=== PATIENT | male | born 1955 | race Caucasian/White ===

== ENCOUNTER 2020-07-08 05:11 | Day surgery (SDC) | payer BC ==
[2020-07-04 09:36] VITALS: BMI 34.2
--- OUTSIDE RECORDS SUMMARY | 2020-07-08 05:18 | XMS ---
:1955 Author Organization [facility] Care Team Providers Name Role Phone Rod GOLDSMITH Unavailable Unavailable Rod GOLDSMITH Unavailable Unavailable Rod GOLDSMITH Unavailable Unavailable Rod GOLDSMITH Unavailable Unavailable Rod GOLDSMITH Unavailable Unavailable Rod GOLDSMITH Unavailable Unavailable Neena GOLDSMITH Unavailable Unavailable Neena GOLDSMITH Unavailable Unavailable Neena GOLDSMITH Unavailable Unavailable Neena GOLDSMITH Unavailable Unavailable Neena GOLDSMITH Unavailable Unavailable KRAUSHAAR Unavailable Unavailable Loren DO Unavailable Unavailable Loren DO Unavailable Unavailable Loren DO Unavailable Unavailable Loren DO Unavailable Unavailable Loren DO Unavailable Unavailable Loren DO Unavailable Unavailable Loren DO Unavailable Unavailable Loren DO Unavailable Unavailable Loren DO Unavailable Unavailable Loren DO Unavailable Unavailable Loren DO Unavailable Unavailable Loren DO Unavailable Unavailable Loren DO Unavailable Unavailable Colin GOLDSMITH Unavailable Unavailable Colin GOLDSMITH Unavailable Unavailable Colin GOLDSMITH Unavailable Unavailable Colin GOLDSMITH Unavailable Unavailable Colin GOLDSMITH Unavailable Unavailable Colin GOLDSMITH Unavailable Unavailable Colin GOLDSMITH Unavailable Unavailable Colin GOLDSMITH Unavailable Unavailable Colin GOLDSMITH Unavailable Unavailable Colin GOLDSMITH Unavailable Unavailable Colin GOLDSMITH Unavailable Unavailable Colin GOLDSMITH Unavailable Unavailable Felipe GOLDSMITH Unavailable Unavailable Felipe GOLDSMITH Unavailable Unavailable Felipe GOLDSMITH Unavailable Unavailable Felipe GOLDSMITH Unavailable Unavailable Felipe GOLDSMITH Unavailable Unavailable Felipe GOLDSMITH Unavailable Unavailable Felipe GOLDSMITH Unavailable Unavailable Felipe GOLDSMITH Unavailable Unavailable Felipe GOLDSMITH Unavailable Unavailable Felipe GOLDSMITH Unavailable Unavailable Re-disclosure Warning The records that you are about to access may contain information from federally- assisted alcohol or drug abuse programs. If such information is present, then the following federally mandated warning applies: This information has been disclosed to you from records protected by federal confidentiality rules (42 CFR part 2). The federal rules prohibit you from making any further disclosure of this information unless further disclosure is expressly permitted by the written consent of the person to whom it pertains or as otherwise permitted by 42 CFR part 2. A general authorization for the release of medical or other information is NOT sufficient for this purpose. The Federal rules restrict any use of the information to criminally investigate or prosecute any alcohol or drug abuse patient.The records that you are about to access may contain highly sensitive health information, the redisclosure of which is protected by Article 27-F of the [facility] Public Health law. If you continue you may haveaccess to information: Regarding HIV / AIDS; Provided by facilities licensed or operated by the [facility] Office of Mental Health; or Provided by the [facility] Office for People With Developmental Disabilities. If such information is present, then the following [facility] mandated warning applies: This information has been disclosed to you from confidential records which are protected by state law. State law prohibits you from making any further disclosure of this information without the specific written consent of the person to whom it pertains, or as otherwise permitted by law. Any unauthorized further disclosure in violation of state law may result in a fine or snf sentence or both. A general authorization for the release of medical or other information is NOT sufficient authorization for further disclosure. Family History Family Member Family Member Family Member Date of Description Data Source(s) Name Gender Status Status Unknown Female Diagnosis 05/15/2012 NEXTGEN 12:00:00 AM ([facility]) Unknown Female Diagnosis 05/15/2012 NEXTGEN 12:00:00 AM ([facility]) Unknown Female Diagnosis 05/15/2012 NEXTGEN 12:00:00 AM ([facility]) Encounters Encounter Providers Location Date Indications Data Source(s ) Outpatient 04/10/2021 [facility] 09:00:00 AM [facility] EDT Outpatient Attender: Aly 07/05/2020 NEXTGEN ( [place] Loren DO 12:05:00 PM Medical) EDT Outpatient Attender: Aly 07/01/2020 NEXTGEN ( [place] Loren DO 05:18:00 AM Medical) EDT Outpatient Attender: Aly 06/29/2020 NEXTGEN ( [place] Loren DO 11:44:00 AM Medical) EDT Outpatient Attender: Aly 06/28/2020 NEXTGEN ( [place] Loren DO 07:30:00 AM Medical) EDT Outpatient Attender: Aly 06/10/2020 NEXTGEN ( [place] [facility] DO 08:52:00 AM Medical) EDT Outpatient Attender: Aly 05/21/2020 NEXTGEN ( [place] [facility] DO 12:14:00 PM Medical) EDT Outpatient Attender: Aly 04/30/2020 NEXTGEN ( [place] [facility] DO 07:17:00 AM Medical) EDT Outpatient Attender: Aly 04/16/2020 NEXTGEN ( [place] [facility] DO 12:58:00 PM Medical) EDT Outpatient Attender: Aly 04/11/2020 NEXTGEN ( [place] [facility] DO 11:15:00 AM Medical) EDT Outpatient 04/11/2020 [facility] Outpatient 04/11/2020 [facility] EDT - 04/11/2020 09:21:30 AM EDT Patient discharged. Outpatient Attender: Aly 04/08/2020 NEXTGEN ( [place] [facility] DO 08:16:00 PM EDT Medical) Outpatient Attender: Aly 03/27/2020 NEXTGEN ( [place] [facility] DO 11:20:00 AM EDT Medical) Outpatient Attender: Aly 02/01/2020 NEXTGEN ( [place] Loren DO 01:09:00 PM EDT Medical) Outpatient Attender: Aly 12/07/2019 NEXTGEN ( [place] [facility] DO 08:40:00 AM EDT Medical) Outpatient Attender: Aly 12/05/2019 NEXTGEN ( [place] [facility] DO 12:03:00 PM EDT Medical) Outpatient Attender: Simon 11/15/2019 NEXTGEN ( Marito Velasco MD 01:43:00 PM EST Medical) Outpatient Attender: Aly 11/10/2019 NEXTGEN ( [place] [facility] DO 05:36:00 PM EST Medical) Outpatient Attender: Aly 11/05/2019 NEXTGEN ( [place] [facility] DO 06:37:00 AM EST Medical) Outpatient Attender: Aly 10/19/2019 NEXTGEN ( [place] [facility] DO 10:13:00 PM EST Medical) Outpatient Attender: Aly 10/09/2019 NEXTGEN ( [place] [facility] DO 12:23:00 PM EST Medical) Outpatient Attender: Henri 09/24/2019 [facility] (Marito Wang MD 10:55:00 AM EST Medical) Outpatient Attender: Aly 08/15/2019 [facility] ( [place] [facility] DO 07:00:00 PM EST Medical) Outpatient Attender: Aly 08/13/2019 [facility] ( [place] [facility] DO 06:21:00 PM EST Medical) Outpatient Attender: Aly 07/27/2019 [facility] ( [place] [facility] DO 12:31:00 PM EDT Medical) Outpatient Attender: Sharan 07/27/2019 [facility] ( Marito Chaudhary MD 07:59:00 AM EDT Medical) S 07/24/2019 [facility] - Good 10:50:51 AM EDT [facility] Outpatient Attender: Trevor 07/21/2019 [facility] (Marito Shaw MD 02:30:00 PM EDT Medical) S Admitter: HECTOR 07/21/2019 Complex tear of [facility] - Good [facility] 10:27:09 AM EDT - medial meniscus of [facility] 07/24/2019 right knee, Hospital 02:18:00 PM EDT unspecified w Complex tear of medial meniscus of right knee, unspecified w Patient discharged. Outpatient Attender: Sharan Chaudhary 07/19/2019 02:30:00 PM RADHA ([place] MDReferrer: Sharan [facility] ) Neena GOLDSMITH Outpatient Attender: Aly Pimentel DO 07/18/2019 09:05:00 A M NEXTGEN ([facility]) Outpatient Attender: Aly Pimentel DO 07/17/2019 06:00:00 P M NEXTGEN ([facility]) Outpatient Attender: Aly Pimentel DO 07/12/2019 10:29:00 A M NEXTGEN ([facility]) Outpatient Attender: Aly Pimentel DO 07/10/2019 09:15:00 A M NEXTGEN ([facility]) Outpatient Attender: Aly Pimentel DO 07/08/2019 02:20:00 P M NEXTGEN ([facility]) Outpatient Attender: Simon Velasco 07/06/2019 02:45:00 PM RADHA ([place] MDReferrer: Aly Pimentel [facility] Medical) Outpatient Attender: Simon Velasco MD 06/30/2019 03:46:00 PM NEXTGEN ([facility]) Outpatient Attender: Aly Pimentel DO 06/27/2019 12:57:00 P M NEXTGEN ([facility]) Outpatient Attender: Aly Pimentel DO 06/26/2019 10:34:00 P M NEXTGEN ([facility]) Outpatient Attender: Aly Pimentel DO 06/22/2019 09:00:00 A M NEXTGEN ([facility]) Outpatient Attender: Aly Pimentel DO 06/13/2019 05:36:00 P M NEXTGEN ([facility]) Outpatient Attender: Aly Pimentel DO 06/12/2019 02:25:00 P M NEXTGEN ([facility]) Outpatient Attender: Aly Pimentel DO 06/09/2019 04:42:00 P M NEXTGEN ([facility]) Outpatient Attender: Aly Pimentel DO 06/06/2019 04:55:00 P M NEXTGEN ([facility]) Outpatient Attender: Aly Pimentel DO 06/05/2019 10:15:00 A M NEXTGEN ([facility]) Outpatient Attender: Aly Pimentel DO 05/22/2019 12:54:00 P M NEXTGEN ([facility]) Outpatient Attender: Henri Wang 05/19/2019 07:40:00 AM NEXTGEN ([facility]) Outpatient Attender: Aly Pimentel DO 05/18/2019 04:33:00 P M NEXTGEN ([facility]) Outpatient Attender: Aly Pimentel DO 05/17/2019 04:25:00 P M NEXTGEN ([facility]) Immunizations Vaccine Date Status Description Data Source(s) Influenza, high dose 06/22/2019 completed Flu High-Dose NEXTGE N ([place] seasonal 12:00:00 AM [facility] Medical) Source: New Immunization Record pneumococcal 06/22/2019 12:00:00 completed Pneumo (2 yrs or NEXT GEN ([place] polysaccharide PPV23 AM T older) (PPV23) Medic al) Source: New Immunization Record Medications Medication Brand Start Product Dose Route Administrative Pharmacy [facility] Indications Reaction Description Data Name Date Form Instructions Instructions Source(s) Acetaminoph Percoc 05/21/ TABLET ORAL active aceta minophe NEXTGEN en 325 MG / et 2019 n 325 MG / ([place] Oxycodone mg-325 12:00: oxycodone M edical) Hydrochlori mg 00 AM hydrochlorid de 5 MG tablet EDT e 5 MG Oral Oral Tablet Tablet [Percocet] [Percocet] Percocet 5 mg-325 mg tablet istop [id number] Lisinopril 10 LISINOPRIL 04/30/2020 TABLET ORAL active TAKE 1 NEXTGEN MG Oral Tablet TAB 10MG 12:00:00 AM TABLET DAILY ([place] LISINOPRIL TAB EDT Medic al) 10MG Metoprolol METOPROLOL 04/30/2020 TABLET ORAL active TAKE 1/2 NEXTGEN Tartrate 25 MG TAB TAR 12:00:00 AM TABLET TWICE ([place] Oral Tablet 25MG EDT A DAY Medical ) METOPROLOL TAB TAR 25MG Famotidine 20 famotidine 04/11/2020 TABLET 1 ORAL active take 1 NEXTGEN MG Oral Tablet 20 mg 12:00:00 AM . ta blet by ([place] famotidine 20 tablet EDT [address] e 2 Medical) mg tablet 0 times every { day t a b l e t } Acetaminophen Percocet 5 03/27/2020 TABLET ORAL completed acetaminophe NEXTGEN 325 MG / mg-325 mg 12:00:00 AM n 32 5 MG / ([place] Oxycodone tablet EDT oxycodone Med ical) Hydrochloride hydrochlori d 5 MG Oral e 5 MG Oral Tablet Tablet [Percocet] [Percocet] Percocet 5 mg-325 mg tablet istop [id number] Acetaminophen Percocet 02/01/2020 TABLET ORAL completed Acetaminophen NEXTGEN 325 MG / 5 mg-325 12:00:00 AM 325 M G / ([place] Oxycodone mg tablet EDT Oxycodone Medical) Hydrochloride Hydrochlori de 5 MG Oral 5 MG Oral Tablet Tablet [Percocet] [Percocet] Percocet 5 mg-325 mg tablet istop on file Acetaminophen Percocet 12/07/2019 TABLET ORAL completed Acetaminophen NEXTGEN 325 MG / 5 mg-325 12:00:00 AM 325 M G / ([place] Oxycodone mg tablet EDT Oxycodone Medical) Hydrochloride Hydrochlori de 5 MG Oral 5 MG Oral Tablet Tablet [Percocet] [Percocet] Percocet 5 mg-325 mg tablet istop [id number] Lisinopril 10 LISINOPRIL 11/05/2019 TABLET ORAL completed TAKE 1 NEXTGEN MG Oral Tablet TAB 10MG 12:00:00 AM TABLET DAILY ([place] LISINOPRIL TAB EST Medic al) 10MG Metoprolol METOPROLOL 11/05/2019 TABLET ORAL completed TAKE 1/2 NEXTGEN Tartrate 25 MG TAB TAR 12:00:00 AM TABLET TWICE ([place] Oral Tablet 25MG EST A DAY Medical ) METOPROLOL TAB TAR 25MG Acetaminophen Percocet 5 10/09/2019 TABLET ORAL completed Acetaminophe NEXTGEN 325 MG / mg-325 mg 12:00:00 AM n 32 5 MG / ([place] Oxycodone tablet EST Oxycodone Med ical) Hydrochloride Hydrochlori d 5 MG Oral e 5 MG Oral Tablet Tablet [Percocet] [Percocet] Percocet 5 mg-325 mg tablet istop [id number] Rosuvastatin rosuvastatin 09/24/2019 TABLET ORAL active TAKE 1 NEXTGEN calcium 5 MG 5 mg tablet 12:00:00 AM TABLET DAILY ([place] Oral Tablet EST FOR Medical) rosuvastatin 5 CHOLESTERO L mg tablet Acetaminophen Percocet 5 08/15/2019 TABLET ORAL complete Acetaminophe NEXTGEN 325 MG / mg-325 mg 12:00:00 AM d n 32 5 MG / ([place] Oxycodone tablet EST Oxycodone Med ical) Hydrochloride Hydrochlori d 5 MG Oral e 5 MG Oral Tablet Tablet [Percocet] [Percocet] Percocet 5 mg-325 mg tablet Lisinopril 10 LISINOPRIL 08/13/2019 TABLET ORAL complete TAKE 1 NEXTGEN MG Oral Tablet TAB 10MG 12:00:00 AM d TABLET DAILY ([place] LISINOPRIL TAB EST Medic al) 10MG Acetaminophen Percocet 5 07/27/2019 TABLET ORAL complete Acetaminophe NEXTGEN 325 MG / mg-325 mg 12:00:00 AM d n 32 5 MG / ([place] Oxycodone tablet EDT Oxycodone Med ical) Hydrochloride Hydrochlori d 5 MG Oral e 5 MG Oral Tablet Tablet [Percocet] [Percocet] Percocet 5 mg-325 mg tablet istop [id number] sodium 92083-629-91 07/24/2019 IntraVENous active OR - PACU, [place] chloride 02:00:00 PM 5-40 mL, [facility] (NS) flush EDT IntraVENous, C har[facility] 5-40 mL EVERY 8 Health HOURS, First System dose on [facility] 07/24/19 at 1400, Until Discontinued Medication administered onsite sodium 00116-565-04 07/24/2019 IntraVENous active OR - Postop, [place] chloride 02:00:00 PM 5-40 mL, [facility] (NS) flush EDT IntraVENous, C harity 5-40 mL EVERY 8 Health HOURS, First System dose on [facility] 07/24/19 at 1400, Until Discontinued Medication administered onsite Oxycodone oxyCODONE IR 07/24/2019 5 mg Oral completed 5 mg, [facility] Hydrochloride 5 (ROXICODONE) 01:16:00 PM Oral, [facility] MG Oral Tablet tablet 5 mg EDT ONC E, 1 [place] oxyCODONE IR dose, Mon He alth (ROXICODONE) 07/24/19 Sys tem tablet 5 mg at 1316 Inc Medication administered onsite sodium 21792-139-33 07/24/2019 IntraVENous active OR - Postop, [place] chloride 11:20:12 AM 5-40 mL, [facility] (NS) flush EDT IntraVENous, C harity 5-40 mL NEEDED, Health Starting [facility] 07/24/19 at Inc 1120, Until Discontinued, Line Patency Medication administered onsite Calcium lactated 07/24/2019 50 IntraVENous active OR - PACU, 50 [facility] Chloride Ringers 10:50:00 AM mL/h mL/hr, at 50 [facility] 0.0014 infusion EDT mL/hr, [place] MEQ/ML / IntraVENous, Hea lth Potassium CONTINUOUS, Sys tem Chloride Starting [facility] 0.004 MEQ/ML 07/24/19 at / Sodium 1050, Until Chloride Discontinued 0.103 MEQ/ML / Sodium Lactate 0.028 MEQ/ML Injectable Solution lactated Ringers infusion Medication administered onsite Labetalol labetalol 07/24/2019 10 IntraVENous active OR - PACU, 10 [facility] hydrochloride 5 MG/ML (NORMODYNE;TRANDATE) 10:49:30 AM mg mg, [facility] Injectable Solution injection 10 mg EDT IntraVENous, [place] labetalol NEEDED, 3 Healt h (NORMODYNE;TRANDATE) dose s, Starting System injection 10 mg [facility] 07/24 at Inc 1049, Until 07/24/19 at 2359, Other, Follow BP guidelines in administration instructions Medication administered onsite Albuterol albuterol 07/24/2019 2.5 Inhalation active OR - PACU, 2.5 Bon 0.83 MG/ML (PROVENTIL 10:49:30 AM mg m g, Inhalation, [facility] Inhalant VENTOLIN) EDT NEEDED, 1 [place] Solution nebulizer dose, Start [facility] albuterol solution Mon 9 at System (PROVENTIL 2.5 mg 1049, Until Inc VENTOLIN) Discontinued, nebulizer Wheezing
MOD E solution OF DELIVERY: 2.5 mg Nebulizer Medication administered onsite Naloxone naloxone 07/24/2019 0.2 IntraVENous active OR - PACU, 0.2 [facility] Hydrochloride (NARCAN) 10:49:30 AM mg mg (0.68778 [facility] 0.4 MG/ML injection EDT mg/kg), [facility] Injection 0.2 mg IntraVENous, Health naloxone NEEDED, Syste m (NARCAN) Starting Mon Inc injection 0.2 07/24/19 at mg 1049, Until Discontinued, For respiration less than 10 Medication administered onsite sodium 75203-244-23 07/24/2019 IntraVENous active OR - PACU, [place] chloride 10:49:29 AM 5-40 mL, [facility] (NS) flush EDT IntraVENous, C harity 5-40 mL NEEDED, Health Starting Mon System 07/24/19 at Inc 1049, Until Discontinued, Line Patency Medication administered onsite fentaNYL 5135-9168-03 07/24/2019 25 IntraVENous active OR - PACU, 25 Bon citrate 10:49:29 AM ug mcg, [facility] (PF) EDT IntraVENous, [place] injection NEEDED, 4 He alth 25 mcg doses, System Starting Mon Inc 07/24/19 at 1049, Until 07/24/19 at 2359, Moderate Pain Medication administered onsite ondansetron 39758-634-78 07/24/2019 4 IntraVENous active OR - PACU, 4 Bon (ZOFRAN) 10:49:29 AM mg mg, [facility] injection 4 EDT IntraVENous, [place] mg NEEDED, 2 Health doses, System Starting Mon Inc 07/24/19 at 1049, Until Discontinued, Nausea or Vomiting Medication administered onsite HYDROmorphone 67059-049-08 07/24/2019 1 IntraVENous activ e OR - PACU, 1 Bon (PF) 10:49:29 AM mg mg, [facility] (DILAUDID) EDT IntraVENous, C harity injection 1 mg ONCE PRN, 1 Health dose, System Starting [facility] 07/24/19 at 1049, Until Wed07/25/19 at 1049, Severe Pain Medication administered onsite fentaNYL 4329-7432-95 07/24/2019 50 IntraVENous active OR - PACU, 50 [facility] citrate 10:49:29 AM ug mcg, [facility] (PF) EDT IntraVENous, [place] injection NEEDED, 4 He alth 50 mcg doses, System Starting [facility] 07/24/19 at 1049, Until Wed07/24/19 at 2359, Severe Pain Medication administered onsite HYDROmorphone 18170-785-48 07/24/2019 0.5 IntraVENous activ e OR - PACU, Bon (PF) 10:49:29 AM mg 0.5 mg, Sec[facility] rs (DILAUDID) EDT IntraVENous, C harity injection 0.5 ONCE PRN, 1 Health mg dose, System Starting [facility] 07/24/19 at 1049, Until Wed07/25/19 at 1049, Moderate Pain Medication administered onsite diphenhydrAMINE 57650-664-94 07/24/2019 25 IntraVENous active OR - PACU, 25 Bon (BENADRYL) 10:49:29 AM mg mg, Se cours injection 25 mg EDT IntraVENo us, [place] NEEDED, Health Starting [facility] 07/24/19 at Inc 1049, Until Discontinued, Itching Medication administered onsite Azithromycin Zithromax 07/21/2019 TABLET 2.00 ORAL completed Azithromycin NEXTGEN 250 MG Oral 250 mg 12:00:00 AM tablet 25 0 MG Oral ([place] Tablet tablet EDT Tablet Medical) [Zithromax] [Zithromax] Zithromax 250 mg tablet Amoxicillin amoxicilli 07/21/2019 aborted TAKE 1 TABLET Bon 875 MG / n-clavulan 12:00:00 AM BY ORAL ROUTE [facility] Clavulanate ate EDT EVERY 12 [place] ity 125 MG Oral (AUGMENTIN HOURS H ealth Tablet ) 875-125 System I nc amoxicillin-c mg per lavulanate tablet (AUGMENTIN) 875-125 mg per tablet Amoxicillin Augmentin 07/21/2019 TABLET 1.00 ORAL completed Amoxicillin NEXTGEN 875 MG / 875 mg-125 12:00:00 AM tablet 8 75 MG / ([place] Clavulanate mg tablet EDT Clavulan ate Medical) 125 MG Oral 125 MG Oral Tablet Tablet [Augmentin] [Augmentin] Augmentin 875 mg-125 mg tablet Famotidine 20 famotidine 07/12/2019 TABLET ORAL active take 1 tablet NEXTGEN MG Oral 20 mg 12:00:00 AM by oral r oute ([place] Tablet tablet EDT 2 times every Me dical) famotidine 20 day --inste ad mg tablet of ranitidine Famotidine 20 famotidine 07/10/2019 TABLET ORAL completed take 1 tablet NEXTGEN MG Oral 20 mg 12:00:00 AM by oral r oute ([place] Tablet tablet EDT 2 times every Me dical) famotidine 20 day --inste ad mg tablet of ranitidine Famotidine 20 famotidine 07/10/2019 TABLET ORAL completed take 1 tablet NEXTGEN MG Oral 20 mg 12:00:00 AM by oral r oute ([place] Tablet tablet EDT 2 times every Me dical) famotidine 20 day --inste ad mg tablet of ranitidine Famotidine Duexis 800 07/06/2019 TABLET 1.00 ORAL active famotidine NEXTGEN 26.6 MG / mg-26.6 mg 12:00:00 AM {tablet 26.6 MG / ([place] Ibuprofen 800 tablet EDT } ibuprofen 800 Medical) MG Oral MG Oral Tablet Tablet [Duexis] [Duexis] Duexis 800 mg-26.6 mg tablet Famotidine 20 famotidine 07/04/2019 20 mg active 20 mg two (2) Bon MG Oral (PEPCID) 12:00:00 AM times a day. [facility] Tablet 20 mg EDT [place] famotidine tablet Health (PEPCID) 20 System I nc mg tablet Famotidine DUEXIS 06/30/2019 aborted Bon 26.6 MG / 800-26.6 12:00:00 AM [facility] Ibuprofen 800 mg tab EDT [facility] it[facility] MG Oral Health Tablet System Inc [Duexis] DUEXIS 800-26.6 mg tab Famotidine 20 famotidine 06/22/2019 TABLET ORAL completed take 1 tablet NEXTGEN MG Oral 20 mg 12:00:00 AM by oral r oute ([place] Tablet tablet EDT 2 times every Me dical) famotidine 20 day --inste ad mg tablet of ranitidine Famotidine 20 famotidine 06/22/2019 TABLET ORAL completed take 1 tablet NEXTGEN MG Oral 20 mg 12:00:00 AM by oral r oute ([place] Tablet tablet EDT 2 times every Me dical) famotidine 20 day --inste ad mg tablet of ranitidine Diazepam 5 MG Valium 5 06/12/2019 TABLET ORAL completed Diazepam 5 MG NEXTGEN Oral Tablet mg tablet 12:00:00 AM O ral Tablet ([place] [Valium] EDT [Valium] Medical ) Valium 5 mg tablet Diazepam 5 MG diazePAM 06/12/2019 active TAKE 1 TO 2 [facility] Oral Tablet (VALIUM) 5 12:00:00 AM TABLETS 30 [facility] diazePAM mg tablet EDT MINUTES ROSELINE OR [place] (VALIUM) 5 mg TO [facility] Acetaminophen Percocet 5 05/22/2019 TABLET ORAL completed Acetaminophen NEXTGEN 325 MG / mg-325 mg 12:00:00 AM 325 MG / ([place] Oxycodone tablet EDT Oxycodone Med ical) Hydrochloride Hydrochlori de 5 MG Oral 5 MG Oral Tablet Tablet [Percocet] [Percocet] Percocet 5 mg-325 mg tablet istop [id number] Rosuvastatin rosuvastatin 05/19/2019 TABLET ORAL completed TAKE 1 NEXTGEN calcium 5 MG 5 mg tablet 12:00:00 AM TABLET DAILY ([place] Oral Tablet EDT FOR Medical) rosuvastatin CHOLESTEROL 5 mg tablet Metoprolol metoprolol 05/17/2019 TABLET ORAL completed TAKE 1/2 NEXTGEN Tartrate 25 tartrate 25 12:00:00 AM TABLET TWICE ([place] MG Oral mg tablet EDT A DAY Medica l) Tablet metoprolol tartrate 25 mg tablet Lisinopril 10 lisinopril 10 05/17/2019 TABLET 1 ORAL completed take 1 NEXTGEN MG Oral mg tablet 12:00:00 AM . table t by ([place] Tablet EDT 0 oral route Medical ) lisinopril 10 0 every day mg tablet t a b l e t Acetaminophen Percocet 5 03/28/2019 TABLET ORAL active Acetaminophe NEXTGEN 325 MG / mg-325 mg 12:00:00 AM n 32 5 MG / ([place] Oxycodone tablet EDT Oxycodone Med ical) Hydrochloride Hydrochlori d 5 MG Oral e 5 MG Oral Tablet Tablet [Percocet] [Percocet] Percocet 5 mg-325 mg tablet istop [id number] Diazepam 5 diazepam 5 10/05/2018 TABLET ORAL completed take 1-2 NEXTGEN MG Oral mg tablet 12:00:00 AM table ts one ([place] Tablet EST hour before Medica l) diazepam 5 procedure mg tablet 60 ACTUAT Advair 06/27/2018 DISC 1.0 RESPIR completed 60 ACTUAT NEXTGEN Fluticasone Diskus 100 12:00:00 AM 0 ATORY Fluticasone ([place] propionate mcg-50 EDT puf (INHAL propionate Medical) 0.1 mcg/dose f ATION) 0.1 MG/ACTUAT / powder for MG/ACTU AT / salmeterol inhalation salmeter ol 0.05 0.05 MG/ACTUAT MG/ACTUAT Dry Powder Dry Powder Inhaler Inhaler [Advair] [Advair] Advair Diskus 100 mcg-50 mcg/dose powder for inhalation 200 ACTUAT ProAir HFA 06/27/2018 AEROSOL RESPIR completed [id number] NEXTGEN Albuterol 90 12:00:00 AM ATORY 200 ACT UAT ([place] 0.09 mcg/actuati EDT (INHAL Albuterol M edical) MG/ACTUAT on aerosol ATION) 0.09 Metered inhaler MG/ACTUAT Dose Metered Inhaler Dose [ProAir] Inhaler ProAir HFA [ProAir] 90 mcg/actuati on aerosol inhaler Shingrix 0.5 ML 06/20/2018 KIT 0.5 INTRAM completed 0 .5 ML NEXTGEN (PF) 50 Varicella 12:00:00 AM magdy hernandez ([place] mcg/0.5 mL zoster EDT lil R zoster Medic al) intramuscul virus ite virus ar glycoprotei r glycoprotei suspension, n E, n E, kit recombinant recombinant 0.1 MG/ML 0.1 MG/ML Injection Injection [Shingrix] Ranitidine ranitidine 06/18/2017 CAPSULE 1 ORAL completed take 1 NEXTGEN 150 MG Oral 150 mg 12:00:00 AM cap caps ule by ([place] Capsule capsule EDT sul oral route Med ical) ranitidine e 2 times 150 mg every day capsule pantoprazol pantoprazol 06/04/2015 TABLET 1.0 ORAL completed take 1 NEXTGEN e 40 mg e 40 MG 12:00:00 AM 0 tablet by ([place] tablet,[place] Delayed EDT {ta oral route Medical) yed release Release ble every day Oral Tablet t} Ranitidine ranitidine 150 Oral aborted Take 150 mg Bon 150 MG Oral (ZANTAC) mg by mouth [facility] Tablet [address] [facility] ranitidine tablet [employer] (ZANTAC) [employer] 150 mg tablet Insurance Providers Payer name Policy type Policy ID Covered Covered green party's Policy P amadeo / Coverage green party ID relationship to Jose Inf ormation type jose BC OUT OF [id number] [place] [id number] FORMERLY [facility] [place] [id number] Bluecross Cross/Blue BlueCard Shield [place] Blue [id number] self [id number] Bluecross Cross/Blue [id number] BlueCard Shield BLUE CROSS [id number] BLUE [place]OSS O [id number] [place] [id number] [address] BCBS [id number] EMPIRE/BLUE PRIORITY [place] [id number] PART A ONLY [place] [id number] [place]UE [place]OSS O [id number] [place] [id number] PART A ONLY Problems, Conditions, and Diagnoses Code Display Name Description Problem Type Effective Data Dates Source(s) Z01.818 Encounter for PreOp Diagnosis 07/06/2019 NEXTGEN other interpretation 12:00:00 AM ([place] preprocedural (observable EDT Medical) examination entity) R00.1 Bradycardia, Bradycardia Diagnosis 07/06/2019 NEXTGEN unspecified interpretation 12:00:00 AM ([facility] d (observable EDT Medical) entity) I71.1 Thoracic aortic Thoracic aortic Diagnosis 07/06/2019 NEXT GEN aneurysm, aneurysm, interpretation 12:00:00 AM ([place] ruptured ruptured (observable EDT Medical) entity) I10 Essential Hypertension Diagnosis 07/06/2019 NEXTGEN (primary) interpretation 12:00:00 AM ([place] hypertension (observable EDT Medical) entity) S83.231A Complex tear of Complex tear of Diagnosis 07/24/2019 [facility] S - Good medial meniscus, medial meniscus, 07:18:00 AM S [facility] current injury, current injury, EDT Hosp ital right knee, right knee, initial encounter initial encounter Surgeries/Procedures Procedure Description Date Indications Data Source(s) OFFICE/OUTPATIENT VISIT, 04/11/2020 NEX TGEN ([place] EST 12:00:00 AM EDT Medical) - 04/11/2020 12:00:00 AM EDT OFFICE/OUTPATIENT VISIT, 08/15/2019 NEX TGEN ([place] EST 12:00:00 AM EST Medical) - 08/15/2019 12:00:00 AM EST OFFICE/OUTPATIENT VISIT, 07/21/2019 NEX TGEN ([place] EST 12:00:00 AM EDT Medical) - 07/21/2019 12:00:00 AM EDT TTE W/DOPPLER COMPLETE 07/19/2019 NEXTG EN ([place] 12:00:00 AM EDT Medical) - 07/19/2019 12:00:00 AM EDT ROUTINE VENIPUNCTURE 07/17/2019 NEXTGEN ([place] 12:00:00 AM EDT Medical) - 07/17/2019 12:00:00 AM EDT OFFICE/OUTPATIENT VISIT, 07/17/2019 NEX TGEN ([place] EST 12:00:00 AM EDT Medical) - 07/17/2019 12:00:00 AM EDT OFFICE CONSULTATION 07/06/2019 NEXTGEN ([place] 12:00:00 AM EDT Medical) - 07/06/2019 12:00:00 AM EDT PNEUMOCOCCAL VACCINE 06/22/2019 NEXTGEN ([place] 12:00:00 AM EDT Medical) - 06/22/2019 12:00:00 AM EDT IMMUNIZATION ADMIN, EACH 06/22/2019 NEX TGEN ([place] ADD 12:00:00 AM EDT Medical) - 06/22/2019 12:00:00 AM EDT FLU VACC PRSV FREE INC 06/22/2019 NEXTG EN ([place] ANTIG 12:00:00 AM EDT Medical) - 06/22/2019 12:00:00 AM EDT IMMUNIZATION ADMIN 06/22/2019 NEXTGEN ( [place] 12:00:00 AM EDT Medical) - 06/22/2019 12:00:00 AM EDT ROUTINE VENIPUNCTURE 06/22/2019 NEXTGEN ([place] 12:00:00 AM EDT Medical) - 06/22/2019 12:00:00 AM EDT PREV VISIT, EST, 65 & 06/22/2019 NEXTGE N ([place] OVER 12:00:00 AM EDT Medical) - 06/22/2019 12:00:00 AM EDT PURE TONE HEARING TEST, 06/22/2019 NEXT GEN ([place] AIR 12:00:00 AM EDT Medical) - 06/22/2019 12:00:00 AM EDT OFFICE/OUTPATIENT VISIT, 06/05/2019 NEX TGEN ([place] EST 12:00:00 AM EDT Medical) - 06/05/2019 12:00:00 AM EDT Results ID Date Data Source [id number] 07/03/2020 05:15:00 PM EDT [facility] Name Value Range Interpretation Description Data Sup porting Code Source(s) Document(s ) SARS [facility] coronavirus 2 RNA This lab was ordered by [facility] and reported by [facility]. ID Date Data Source [id number] 06/30/2020 04:43:00 PM EDT [facility] Received: 06/29/2020 at 09:57:00 QTE : [place], [address]Gucci MD Received: 06/29/2020 at 09:57:00 QTE : [facility] [place], [address]Gucci MD Received: 06/29/2020 at 09:57:00 QTE : [place], [address]Gucci MD Received: 06/29/2020 at 09:57:00 QTE : [place], [address]Gucci MD Received: 06/29/2020 at 09:57:00 QTE : [facility], [address], [place], [address], Gucci Gómez MD Received: 06/29/2020 at 09:57:00 QTE : [facility], [address], [place], [address], Gucci Gómez MD Received: 06/29/2020 at 09:57:00 QTE : [facility], [address], [place], [address], Gucci Gómez MD Received: 06/29/2020 at 09:57:00 QTE : [facility], [address], [place], [address], Gucci Gómez MD Received: 06/29/2020 at 09:57:00 QTE : [facility], [address], [place], [address], Gucci Gómez MD Received: 06/29/2020 at 09:57:00 QTE : [facility], [address], [place], [address], Gucci Gómez MD Received: 06/29/2020 at 09:57:00 QTE : [facility], [address], [place], [address], Gucci Gómez MD Received: 06/29/2020 at 09:57:00 QTE : [facility], [address], [place], [address], Gucci Gómez MD Name Value Range Interpretation Description Data Sup porting Code Source(s) Document(s ) Cholesterol 142 <200 Normal (applies [facility] [Mass/volume] mg/dL to non-numeric Diagnostics in Serum or results) Plasma Cholesterol in 54 mg/dL > OR = Normal (applies [facility] HDL 40 to non-numeric Diagnostics [Mass/volume] results) in Serum or Plasma Triglyceride 45 mg/dL <150 Normal (applies [facility] [Mass/volume] to non-numeric Diagnostics in Serum or results) Plasma Cholesterol in 75 mg/dL Normal (applies [facility] LDL (calc) to non-numeric Diagnostics [Mass/volume] results) in Serum or Plasma by calculation Reference range: <100Desirable range <10 0 mg/dL for primary prevention;<70 mg/dL for patients with CHD or diabetic patientswi th > or = 2 CHD risk factors.LDL-C is now calculated using the BravoVon lation, which is a validated novel method providingbetter accuracy than the Friede neeraj equation in theestimation of LDL-C.Bravo SS et al. EVY. 2013;310(19 ): [phone](http://education.Paymate.com/faq/WCS250) Cholesterol.total/Cholesterol in 2.6 (calc) <5.0 Normal (applies [facility] HDL [Mass Ratio] in Serum or to non-numeric Diagnostics Plasma results) Cholesterol non HDL [Mass/volume] 88 mg/dL <130 Normal (applies [facility] in Serum or Plasma (calc) to non-numeric Diagno stics results) For patients with diabetes plus 1 major ASCVD riskfactor, treating to a non-HDL-C goal of <100 mg/dL(LDL-C of <70 mg/dL) i s considered a therapeuticoption. ID Date Data Source [id number] 06/30/2020 04:43:00 PM EDT [facility] Received: 06/29/2020 at 09:57:00 QTE : [place], [address], Gucci Gómez MD Received: 06/29/2020 at 09:57:00 QTE : [place], [address]Gucci MD Received: 06/29/2020 at 09:57:00 QTE : [place], [address]Gucci MD Received: 06/29/2020 at 09:57:00 QTE : [place], [address]Gucci MD Received: 06/29/2020 at 09:57:00 QTE : [facility], [address], [place], [address], Gucci Gómez MD Received: 06/29/2020 at 09:57:00 QTE : [facility], [address], [place], [address], Gucci Gómez MD Received: 06/29/2020 at 09:57:00 QTE : [facility], [address], [place], [address], Gucci Gómez MD Received: 06/29/2020 at 09:57:00 QTE : [facility], [address], [place], [address], Gucci Gómez MD Received: 06/29/2020 at 09:57:00 QTE : [facility], [address], [place], [address], Gucci Gómez MD Received: 06/29/2020 at 09:57:00 QTE : [facility], [address], [place], [address], Gucci Gómez MD Received: 06/29/2020 at 09:57:00 QTE : [facility], [address], [place], [address], Gucci Gómez MD Received: 06/29/2020 at 09:57:00 QTE : [facility], [address], [place], [address], Gucci Gómez MD Name Value Range Interpretation Description Data Source(s ) Supporting Code Document(s ) Urate 5.4 mg/dL 4.0-8.0 Normal (applies to [facility] [Mass/volu non-numeric Diagnostics me] in results) Serum or Plasma Therapeutic target for gout patients: <6 .0 mg/dL ID Date Data Source [id number] 06/30/2020 04:43:00 PM EDT [facility] Received: 06/29/2020 at 09:57:00 QTE : [facility], [address], [place], [address], Gucci Gómez MD Received: 06/29/2020 at 09:57:00 QTE : [facility], [address], [place], [address], Gucci Gómez MD Received: 06/29/2020 at 09:57:00 QTE : [facility], [address], [place], [address], Gucci Gómez MD Received: 06/29/2020 at 09:57:00 QTE : [facility], [address], [place], [address], Gucci Gómez MD Received: 06/29/2020 at 09:57:00 QTE : [facility], [address], [place], [address], Gucci Gómez MD Received: 06/29/2020 at 09:57:00 QTE : [facility], [address], [place], [address], Gucci Gómez MD Received: 06/29/2020 at 09:57:00 QTE : [facility], [address], [place], [address], Gucci Gómez MD Received: 06/29/2020 at 09:57:00 QTE : [facility], [address], [place], [address], Gcuci Gómez MD Received: 06/29/2020 at 09:57:00 QTE : [facility], [address], [place], [address], Gucci Gómez MD Received: 06/29/2020 at 09:57:00 QTE : [facility], [address], [place], [address], Gucci Gómez MD Received: 06/29/2020 at 09:57:00 QTE : [facility], [address], [place], [address], Gucci Gómez MD Received: 06/29/2020 at 09:57:00 QTE : [facility] [address], [place], [address], Gucci Gómez MD Name Value Range Interpretation Description Data Source(s ) Supporting Code Document(s ) Glucose 121 mg/dL 65-99 Above high normal [facility] [Mass/volum Diagnostics e] in Serum or Plasma Fasting reference intervalFor someone without known diabetes, a glucose valuebetween 100 and 125 mg/dL is consis tent withprediabetes and should be confirmed with afollow-up test. Urea nitrogen 11 mg/dL 7-25 Normal (applies to [facility] D iagnostics [Mass/volume] in Serum non-numeric results) or Plasma Creatinine 0.79 mg/dL 0.70-1.25 Normal (applies to [facility] [Mass/volume] in Serum non-numeric results) or Plasma For patients >49 years of age, the refer ence limitfor Creatinine is approximately 13% higher for peopleidentified as -A merican. Glomerular filtration 93 mL/min/1.73m2 > OR = Normal (applies [facility] rate/1.73 sq 60 to non-numeric Diagnostics M.predicted [Volume results) Rate/Area] in Serum, Plasma or Blood by Creatinine-based formula (MDRD) Glomerular filtration 108 mL/min/1.73m2 > OR = Normal (applies [facility] rate/1.73 sq M 60 to non-numeric Diagnostic s predicted among blacks results) [Volume Rate/Area] in Serum or Plasma by Creatinine-based formula (MDRD) Urea NOT APPLICABLE 6-22 [facility] nitrogen/Creatinine (calc) Diagnostic s [Mass Ratio] in Serum or Plasma Sodium [Moles/volume] 141 mmol/L 135-146 Normal (applies Q uest in Serum or Plasma to non-numeric Diagno stics results) Potassium 4.4 mmol/L 3.5-5.3 Normal (applies [facility] [Moles/volume] in to non-numeric Diagnos tics Serum or Plasma results) Chloride 106 mmol/L 98-110 Normal (applies [facility] [Moles/volume] in to non-numeric Diagnos tics Serum or Plasma results) Carbon dioxide, total 25 mmol/L 20-32 Normal (applies Qu est [Moles/volume] in to non-numeric Diagnos tics Serum or Plasma results) Calcium [Mass/volume] 10.6 mg/dL 8.6-10.3 Above high [facility] in Serum or Plasma normal Diagnostics Protein [Mass/volume] 6.9 g/dL 6.1-8.1 Normal (applies Qu est in Serum or Plasma to non-numeric Diagno stics results) Albumin [Mass/volume] 4.7 g/dL 3.6-5.1 Normal (applies Qu est in Serum or Plasma to non-numeric Diagno stics results) Globulin [Mass/volume] 2.2 g/dL (calc) 1.9-3.7 Normal (applies [facility] in Serum by to non-numeric Diagnostics calculation results) Albumin/Globulin [Mass 2.1 (calc) 1.0-2.5 Normal (applies [facility] Ratio] in Serum or to non-numeric Diagno stics Plasma results) Bilirubin.total 0.7 mg/dL 0.2-1.2 Normal (applies [facility] [Mass/volume] in Serum to non-numeric Di agnostics or Plasma results) Alkaline phosphatase 58 U/L 35-144 Normal (applies Que st [Enzymatic to non-numeric Diagnostics activity/volume] in results) Serum or Plasma Aspartate 24 U/L 10-35 Normal (applies [facility] aminotransferase to non-numeric Diagnost ics [Enzymatic results) activity/volume] in Serum or Plasma Alanine 36 U/L 9-46 Normal (applies [facility] aminotransferase to non-numeric Diagnost ics [Enzymatic results) activity/volume] in Serum or Plasma ID Date Data Source [id number] 06/30/2020 04:43:00 PM EDT [facility] Received: 06/29/2020 at 09:57:00 QTE : [facility] [place], [address], Gucci Gómez MD Received: 06/29/2020 at 09:57:00 QTE : [place], [address], Gucci Gómez MD Received: 06/29/2020 at 09:57:00 QTE : [facility] [place], [address], Gucci Gómez MD Received: 06/29/2020 at 09:57:00 QTE : [facility], [address], [place], [address], Gucci Gómez MD Received: 06/29/2020 at 09:57:00 QTE : [facility], [address], [place], [address], Gucci Gómez MD Received: 06/29/2020 at 09:57:00 QTE : [facility], [address], [place], [address], Gucci Gómez MD Received: 06/29/2020 at 09:57:00 QTE : [facility], [address], [place], [address], Gucci Gómez MD Received: 06/29/2020 at 09:57:00 QTE : [facility], [address], [place], [address], Gucci Gómez MD Received: 06/29/2020 at 09:57:00 QTE : [facility], [address], [place], [address], Gucci Gómez MD Received: 06/29/2020 at 09:57:00 QTE : [facility], [address], [place], [address], Gucci Gómez MD Received: 06/29/2020 at 09:57:00 QTE : [facility], [address], [place], [address], Gucci Gómez MD Received: 06/29/2020 at 09:57:00 QTE : [facility], [address], [place], [address], Gucci Gómez MD Name Value Range Interpretation Description Data Sup porting Code Source(s) Document(s ) Color of Urine YELLOW YELLOW Normal (applies [facility] to non-numeric Diagnostics results) Appearance of CLEAR CLEAR Normal (applies [facility] Urine to non-numeric Diagnostics results) Specific 1.006 1.001-1.03 Normal (applies [facility] gravity of 5 to non-numeric Diagnostics Urine by Test results) strip pH of Urine by 7.0 5.0-8.0 Normal (applies [facility] Test strip to non-numeric Diagnostics results) Glucose NEGATIVE NEGATIVE Normal (applies [facility] [Presence] in to non-numeric Diagnostics Urine by Test results) strip Bilirubin.tota NEGATIVE NEGATIVE Normal (applies [facility] l [Presence] to non-numeric Diagnostics in Urine by results) Test strip Ketones NEGATIVE NEGATIVE Normal (applies [facility] [Presence] in to non-numeric Diagnostics Urine by Test results) strip Hemoglobin NEGATIVE NEGATIVE Normal (applies [facility] [Presence] in to non-numeric Diagnostics Urine by Test results) strip Protein NEGATIVE NEGATIVE Normal (applies [facility] [Presence] in to non-numeric Diagnostics Urine by Test results) strip Nitrite NEGATIVE NEGATIVE Normal (applies [facility] [Presence] in to non-numeric Diagnostics Urine by Test results) strip Leukocyte NEGATIVE NEGATIVE Normal (applies [facility] esterase to non-numeric Diagnostics [Presence] in results) Urine by Test strip Leukocytes NONE SEEN < OR = 5 Normal (applies [facility] [#/area] in /HPF to non-numeric Diagnostics Urine sediment results) by Microscopy high power field Erythrocytes NONE SEEN < OR = 2 Normal (applies [facility] [#/area] in /HPF to non-numeric Diagnostics Urine sediment results) by Microscopy high power field Epithelial NONE SEEN < OR = 5 Normal (applies [facility] cells.squamous /HPF to non-numeric Diagnostic s [#/area] in results) Urine sediment by Microscopy high power field Bacteria NONE SEEN NONE SEEN Normal (applies [facility] [#/area] in /HPF to non-numeric Diagnostics Urine sediment results) by Microscopy high power field Hyaline casts NONE SEEN NONE SEEN Normal (applies [facility] [#/area] in /LPF to non-numeric Diagnostics Urine sediment results) by Microscopy low power field ID Date Data Source [id number] 06/30/2020 04:43:00 PM EDT [facility] Received: 06/29/2020 at 09:57:00 QTE : [facility] [place], [address], Gucci Gómez MD Received: 06/29/2020 at 09:57:00 QTE : [place], [address], Gucci Gómez MD Received: 06/29/2020 at 09:57:00 QTE : [facility], [address], [place], [address], Gucci Gómez MD Received: 06/29/2020 at 09:57:00 QTE : [facility], [address], [place], [address], Gucci Gómez MD Received: 06/29/2020 at 09:57:00 QTE : [facility], [address], [place], [address], Gucci Gómez MD Received: 06/29/2020 at 09:57:00 QTE : [facility], [address], [place], [address], Gucci Gómez MD Received: 06/29/2020 at 09:57:00 QTE : [facility], [address], [place], [address], Gucci Gómez MD Received: 06/29/2020 at 09:57:00 QTE : [facility], [address], [place], [address], Gucci Gómez MD Received: 06/29/2020 at 09:57:00 QTE : [facility], [address], [place], [address], Gucci Gómez MD Received: 06/29/2020 at 09:57:00 QTE : [facility], [address], [place], [address], Gucci Gómez MD Received: 06/29/2020 at 09:57:00 QTE : [facility], [address], [place], [address], Gucci Gómez MD Received: 06/29/2020 at 09:57:00 QTE : [facility], [address], [place], [address], Gucci Gómez MD Name Value Range Interpretation Description Data Sup porting Code Source(s) Document(s ) Leukocytes 6.2 3.8-10. Normal (applies [facility] [#/volume] in Thousand 8 to non-numeric Diagnostics Blood by /uL results) Automated count Erythrocytes 4.26 4.20-5. Normal (applies [facility] [#/volume] in Million/ 80 to non-numeric Diagnostics Blood by uL results) Automated count Hemoglobin 13.9 13.2-17 Normal (applies [facility] [Mass/volume] in g/dL .1 to non-numeric Diagnost ics Blood results) Hematocrit 42.0 % 38.5-50 Normal (applies [facility] [Volume .0 to non-numeric Diagnostics Fraction] of results) Blood by Automated count Erythrocyte mean 98.6 fL 80.0-10 Normal (applies [facility] corpuscular 0.0 to non-numeric Diagnostics volume [Entitic results) volume] by Automated count Erythrocyte mean 32.6 pg 27.0-33 Normal (applies [facility] corpuscular .0 to non-numeric Diagnostics hemoglobin results) [Entitic mass] by Automated count Erythrocyte mean 33.1 32.0-36 Normal (applies [facility] corpuscular g/dL .0 to non-numeric Diagnostics hemoglobin results) concentration [Mass/volume] by Automated count Erythrocyte 12.6 % 11.0-15 Normal (applies [facility] distribution .0 to non-numeric Diagnostics width [Ratio] by results) Automated count Platelets 220 140-400 Normal (applies [facility] [#/volume] in Thousand to non-numeric Diagnostics Blood by /uL results) Automated count Platelet mean 12.0 fL 7.5-12. Normal (applies [facility] volume [Entitic 5 to non-numeric Diagnosti cs volume] in Blood results) by Miky Neutrophils 4290 1500-78 Normal (applies [facility] [#/volume] in cells/uL 00 to non-numeric Diagnostics Blood by results) Automated count Lymphocytes 1141 850-390 Normal (applies [facility] [#/volume] in cells/uL 0 to non-numeric Diagnostics Blood by results) Automated count Monocytes 577 200-950 Normal (applies [facility] [#/volume] in cells/uL to non-numeric Diagnostics Blood by results) Automated count Eosinophils 161 15-500 Normal (applies [facility] [#/volume] in cells/uL to non-numeric Diagnostics Blood by results) Automated count Basophils 31 0-200 Normal (applies [facility] [#/volume] in cells/uL to non-numeric Diagnostics Blood by results) Automated count Neutrophils/100 69.2 % 38-80 Normal (applies [facility] leukocytes in to non-numeric Diagnostics Blood by results) Automated count Lymphocytes/100 18.4 % 15-49 Normal (applies [facility] leukocytes in to non-numeric Diagnostics Blood by results) Automated count Monocytes/100 9.3 % 0-13 Normal (applies [facility] leukocytes in to non-numeric Diagnostics Blood by results) Automated count Eosinophils/100 2.6 % 0-8 Normal (applies [facility] leukocytes in to non-numeric Diagnostics Blood by results) Automated count Basophils/100 0.5 % 0-2 Normal (applies [facility] leukocytes in to non-numeric Diagnostics Blood by results) Automated count ID Date Data Source [id number] 06/30/2020 04:43:00 PM EDT [facility] Received: 06/29/2020 at 09:57:00 QTE : [facility], [address] [place], [address], Gucci Gómez MD Received: 06/29/2020 at 09:57:00 QTE : [facility], [address] [place], [address], Gucci Gómez MD Received: 06/29/2020 at 09:57:00 QTE : [facility], [place], [address], Gucci Gómez MD Received: 06/29/2020 at 09:57:00 QTE : [facility], [place], [address], Gucci Gómez MD Received: 06/29/2020 at 09:57:00 QTE : [facility], [place], [address], Gucci Gómez MD Received: 06/29/2020 at 09:57:00 QTE : [facility], [address], [address], Gucci Gómez MD Received: 06/29/2020 at 09:57:00 QTE : [facility], [place], [address], Gucci Gómez MD Received: 06/29/2020 at 09:57:00 QTE : [facility], [address] [place], [place], [address], Gucci Gómez MD Received: 06/29/2020 at 09:57:00 QTE : [facility], [address], [place], [address], Gucci Gómez MD Received: 06/29/2020 at 09:57:00 QTE : [facility], [address], [place], [address], Gucci Gómez MD Received: 06/29/2020 at 09:57:00 QTE : [facility], [address], [place], [address], Gucci Góemz MD Received: 06/29/2020 at 09:57:00 QTE : [facility], [address], [place], [address], Gucci Gómez MD Name Value Range Interpretation Description Data Sup porting Code Source(s) Document(s ) Triiodothyronine 113 76-181 Normal (applies [facility] (T3) [Mass/volume] ng/dL to non-numeric Diagno stics in Serum or Plasma results) ID Date Data Source [id number] 06/30/2020 04:43:00 PM EDT [facility] Received: 06/29/2020 at 09:57:00 QTE : [facility], [place], [address], Gucci Gómez MD Received: 06/29/2020 at 09:57:00 QTE : [facility], [place], [address], Gucci Gómez MD Received: 06/29/2020 at 09:57:00 QTE : [facility], [place], [address], Gucci Gómez MD Received: 06/29/2020 at 09:57:00 QTE : [facility], [address], [place], [address], Gucci Gómez MD Received: 06/29/2020 at 09:57:00 QTE : [facility], [address], [place], [address], Gucci Gómez MD Received: 06/29/2020 at 09:57:00 QTE : [facility], [address], [place], [address], Gucci Gómez MD Received: 06/29/2020 at 09:57:00 QTE : [facility], Diego Ramirez, [place], [address], Gucci Gómez MD Received: 06/29/2020 at 09:57:00 QTE : [facility], [address], [place], [address], Gucci Gómez MD Received: 06/29/2020 at 09:57:00 QTE : [facility], [address], [place], [address], Gucci Gómez MD Received: 06/29/2020 at 09:57:00 QTE : [facility], [address] Ramirez, [place], [address], Gucci Gómez MD Received: 06/29/2020 at 09:57:00 QTE : [facility], [address], [place], [address], Gucci Gómez MD Received: 06/29/2020 at 09:57:00 QTE : [facility], Diego Ramirez, [place], [address], Gucci Gómez MD Name Value Range Interpretation Description Data Source(s ) Supporting Code Document(s ) Thyroxine 8.1 4.9-10.5 Normal (applies [facility] (T4) mcg/dL to non-numeric Diagnostics [Mass/volume results) ] in Serum or Plasma ID Date Data Source [id number] 06/30/2020 04:43:00 PM EDT [facility] Received: 06/29/2020 at 09:57:00 QTE : [facility], [address], [place], [address], Gucci Gómez MD Received: 06/29/2020 at 09:57:00 QTE : [facility], [address], [place], [address], Gucci Gómez MD Received: 06/29/2020 at 09:57:00 QTE : [facility], [address], [place], [address], Gucci Gómez MD Received: 06/29/2020 at 09:57:00 QTE : [facility], [address], [place], [address], Gucci Gómez MD Received: 06/29/2020 at 09:57:00 QTE : [facility], [address], [place], [address], Gucci Gómez MD Received: 06/29/2020 at 09:57:00 QTE : [facility], [address], [place], [address], Gucci Gómez MD Received: 06/29/2020 at 09:57:00 QTE : [facility], [address], [place], [address], Gucci Gómez MD Received: 06/29/2020 at 09:57:00 QTE : [facility], [address], [place], [address], Gucci Gómez MD Received: 06/29/2020 at 09:57:00 QTE : [facility], [address], [place], [address], Gucci Gómez MD Received: 06/29/2020 at 09:57:00 QTE : [facility], [address], [place], [address], Gucci Gómez MD Received: 06/29/2020 at 09:57:00 QTE : [facility], [address] Ramirez, [place], [address], Gucci Gómez MD Received: 06/29/2020 at 09:57:00 QTE : [facility], [address] Ramirez, [place], [address], Gucci Gómez MD Name Value Range Interpretation Description Data Sup porting Code Source(s) Document(s ) Thyrotropin 1.19 0.40-4.5 Normal (applies [facility] [Units/volume] mIU/L 0 to non-numeric Diagnostic s in Serum or results) Plasma ID Date Data Source [id number] 06/30/2020 04:43:00 PM EDT [facility] Received: 06/29/2020 at 09:57:00 QTE : [facility], [address] Valente [place], [place], [address], Gucci Gómez MD Received: 06/29/2020 at 09:57:00 QTE : [facility], Diego Terrycolm Salvadore, [place], [address], Gucci Gómez MD Received: 06/29/2020 at 09:57:00 QTE : [facility], [place], [address], Gucci Gómez MD Received: 06/29/2020 at 09:57:00 QTE : [facility], [place], [address], Gucci Gómez MD Received: 06/29/2020 at 09:57:00 QTE : [facility], [place], [address], Gucci Gómez MD Received: 06/29/2020 at 09:57:00 QTE : [facility], [place], [address], Gucci Gómez MD Received: 06/29/2020 at 09:57:00 QTE : [facility], [place], [address], Gucci Gómez MD Received: 06/29/2020 at 09:57:00 QTE : [facility], Diego Ramirez, [place], [address], Gucci Gómez MD Received: 06/29/2020 at 09:57:00 QTE : [facility], Diego Ramirez, [place], [address]Gucci MD Received: 06/29/2020 at 09:57:00 QTE : [facility], [address], [place], [place], [address]Gucci MD Received: 06/29/2020 at 09:57:00 QTE : [facility], [place], [address]Gucci MD Received: 06/29/2020 at 09:57:00 QTE : [facility], [address], [place], [address], Gucci Gómez MD Name Value Range Interpretation Description Data Source(s ) Supporting Code Document(s ) Prostate 0.5 < OR = Normal (applies [facility] specific Ag ng/mL 4.0 to non-numeric Diagnostics [Mass/volume results) ] in Serum or Plasma The total PSA value from this assay syst em isstandardized against the WHO standard. The testresult will be approximately 20% lower when comparedto the equimolar-standardized total PSA (Beckma nCoulter). Comparison of serial PSA results should beinterpreted with this fact in m ind.This test was performed using the Siemenschemiluminescent method. Values o btained fromdifferent assay methods cannot be usedinterchangeably. PSA levels, regardl ess ofvalue, should not be interpreted as absoluteevidence of the presence or abse nce of disease. ID Date Data Source [id number] 06/30/2020 04:43:00 PM EDT [facility] Received: 06/29/2020 at 09:57:00 QTE : [facility], Diego Ramirez, [place], [address]Gucci MD Received: 06/29/2020 at 09:57:00 QTE : [facility], [address], [place], [address], Gucci Gómez MD Received: 06/29/2020 at 09:57:00 QTE : [facility], [address], [place], [address], Gucci Gómez MD Received: 06/29/2020 at 09:57:00 QTE : [facility], [address], [place], [address], Gucci Gómez MD Received: 06/29/2020 at 09:57:00 QTE : [facility], [address], [place], [address], Gucci Gómez MD Received: 06/29/2020 at 09:57:00 QTE : [facility], [address], [place], [address], Gucci Gómez MD Received: 06/29/2020 at 09:57:00 QTE : [facility], [address], [place], [address], Gucci Gómez MD Received: 06/29/2020 at 09:57:00 QTE : [facility], [address], [place], [address], Gucci Gómez MD Received: 06/29/2020 at 09:57:00 QTE : [facility], [address], [place], [address], Gucci Gómez MD Received: 06/29/2020 at 09:57:00 QTE : [facility], [address], [place], [address], Gucci Gómez MD Received: 06/29/2020 at 09:57:00 QTE : [facility], [address], [place], [address], Gucci Gómez MD Received: 06/29/2020 at 09:57:00 QTE : [facility], [address], Gucci Gómez MD Name Value Range Interpretation Description Data Source(s ) Supporting Code Document(s ) Cobalamin 158 [id number] Normal (applies [facility] (Vitamin pg/mL to non-numeric Diagnostics B12) results) [Mass/volume ] in Serum or Plasma Please Note: Although the reference rang e for wendtwaS49 is 200-1100 pg/mL, it has been reported that between5 and 10% of p atients with values between 200 and 400pg/mL may experience neuropsychiatric and farzad tologicabnormalities due to occult B12 deficiency; less than 1%of patients with values above 400 pg/mL will have symptoms. Folate [Mass/volume] in 16.8 ng/mL Normal (applies to [facility] Serum or Plasma non-numeric results) Reference Ran ge Low: <3.4 Borderlin e: 3.4-5.4 Normal: >5.4 ID Date Data Source [id number] 06/30/2020 04:43:00 PM EDT [facility] Received: 06/29/2020 at 09:57:00 QTE : [facility] [place], [address], Gucci Gómez MD Received: 06/29/2020 at 09:57:00 QTE : [place], [address], Gucci Gómez MD Received: 06/29/2020 at 09:57:00 QTE : [facility] [place], [address]Gucci MD Received: 06/29/2020 at 09:57:00 QTE : [place], [address]Gucci MD Received: 06/29/2020 at 09:57:00 QTE : [place], [address]Gucci MD Received: 06/29/2020 at 09:57:00 QTE : [facility], Diego Ramirez, [place], [address], Gucci Gómez MD Received: 06/29/2020 at 09:57:00 QTE : [facility], [place], [address], Gucci Gómez MD Received: 06/29/2020 at 09:57:00 QTE : [facility], [address], [place], [address], Gucci Gómez MD Received: 06/29/2020 at 09:57:00 QTE : [facility], [address] Ramirez, [place], [address], Gucci Gómez MD Received: 06/29/2020 at 09:57:00 QTE : [facility], [address], [place], [address], Gucci Gómez MD Received: 06/29/2020 at 09:57:00 QTE : [facility], [address], [place], [address], Gucci Gómez MD Received: 06/29/2020 at 09:57:00 QTE : [facility], [place], [address], Gucci Gómez MD Name Value Range Interpretation Description Data Source(s ) Supporting Code Document(s ) Calcidiol 34 ng/mL 30-100 Normal (applies [facility] [Mass/volume] to non-numeric Diagnostics in Serum or results) Plasma Vitamin D Status 25-OH Vitamin D :Deficiency: <20 ng/mLInsufficiency: 20 - 29 ng/mLOptimal: > or = 30 ng/mLFor 25-OH Vitamin D testing on valeriy ents onD2-supplementation and patients for whom quantitationof D2 and D3 fractions is required, the QuestAssureD(TM)25-OH VIT D, (D2,D3), LC/MS/MS is recommended: [facility] [place] [address] (patients >2yrs).See Note 1Note 1For additional information, please refe r [email or web address]/ faq/LAB291(This link is being provided for informational/educational purposes only. ) ID Date Data Source [id number] 06/30/2020 04:43:00 PM EDT [facility] Received: 06/29/2020 at 09:57:00 QTE : [facility], [address], [place], [address], Gucci Gómez MD Received: 06/29/2020 at 09:57:00 QTE : [facility], [address], [place], [address], Gucci Gómez MD Received: 06/29/2020 at 09:57:00 QTE : [facility], [address], [place], [address], Gucci Gómez MD Received: 06/29/2020 at 09:57:00 QTE : [facility], [address], [place], [address], Gucci Gómez MD Received: 06/29/2020 at 09:57:00 QTE : [facility], [address], [place], [address], Gucci Gómez MD Received: 06/29/2020 at 09:57:00 QTE : [facility], [address], [place], [address], Gucci Gómez MD Received: 06/29/2020 at 09:57:00 QTE : [facility], [address], [place], [address], Gucci Gómez MD Received: 06/29/2020 at 09:57:00 QTE : [facility], [address], [place], [address], Gucci Gómez MD Received: 06/29/2020 at 09:57:00 QTE : [facility], [address], [place], [address], Gucci Gómez MD Received: 06/29/2020 at 09:57:00 QTE : [facility], [address], [place], [address], Gucci Gómez MD Received: 06/29/2020 at 09:57:00 QTE : [facility], [place], [address], Gucci Gómez MD Received: 06/29/2020 at 09:57:00 QTE : [facility], [place], [address], Gucci Gómez MD Name Value Range Interpretation Description Data Source(s ) Supporting Code Document(s ) Hemoglobin 5.9 % of <5.7 Above high normal [facility] A1c/Hemoglobin total Diagnostics .total in Hgb Blood For someone without known diabetes, a he kbhspziiM9o value between 5.7% and 6.4% is consistent withprediabetes and should be confirmed with afollow-up test.For someone with known diabetes, a value <7%indicate s that their diabetes is well controlled. M0mjalfxvc should be individualized base d on duration ofdiabetes, age, comorbid conditions, and otherconsiderations.This assay result is consistent with an increased riskof diabetes.Currently, no consensus exists regarding use ofhemoglobin A1c for diagnosis of diabetes for children. ID Date Data Source [id number] 07/25/2019 07:22:18 PM EDT [facility] - [address] [place], [place] [address]IQUQRBU: MINESH GREENMRN: [id number]: [id number]#: [id number] DATE: 07/24/2019 OPERATIVE REPORTPROCEDURE DATE: 07/24/2019SURGEON: Hector Kapoor MDA SSISTANT: None.PREOPERATIVE DIAGNOSIS: Right knee torn medial meniscus.POSTOPER ATIVE DIAGNOSES: Right knee torn medial meniscus pluschondromalacia/earlyarthrit is.PROCEDURE PERFORMED: Arthroscopic partial medial meniscectomy withpatellofemoralch ondroplasty.IMPLANTS: None.ANESTHESIA: General.ESTIMATED BLOOD LOSS: Minimal.S PECIMENS REMOVED: None.FINDINGS: Patellofemoral arthritis and medial meni scal tear with medial femoralchondromalacia.URINE OUTPUT: Non e.PROCEDURE: The patient was brought to the operating room, placed on theoperativeta ble in the supine position. He was given general anesthesia, and the rightlowerex tremity was prepped and draped in sterile fashion. Antibiotics were givenprophyla ctically, time-out was called after sterile prep and drape. Notourniquetwas used.An teromedial and anterolateral arthroscopic portals were used. His previousportalsw ere not optimal for accessing the posterior medial corner, so I used a newportal ont he medial side. The patellofemoral joint was inspected first. 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 Attention was directed to the lateralcompartmentwhere the patient had an intact articular surface on the femur and some verymildchondromal acia on the tibia. The lateral meniscus was not torn. Attention wasthendirected to the medial compartment where the patient had a complex medialmeniscaltear as predicte d on the preoperative workup. Shaved debridement of the medialmeniscus was pe rformed with hand instrumentation used as well. The lateralportionof the posterio r horn of the medial meniscus had a flap tear that was trapped inthenotch. This was c arefully extracted and debrided using the intercondylar accessportal as well. The femoral condyle had a groove that had been abraded into itbythe meniscal tear. Thi s was encountered at the onset of the case and carefullypreserved and protected dur ing the procedure of meniscectomy. Contouringchondroplasty was performed on ly removing as much cartilage as was necessary tooptimize visualization poste riorly and smooth the edges of the preexisting tear.Instrumentation was rem mishel from the knee. The knee was closed with nylonsutures.A sterile dressing was plac ed. The patient was returned to the recovery room ingoodcondition. There were no com plications. No urine output. No specimen. Nobloodloss. HECTOR Beavers, MDDD: 07/24/2019 11:50:14/BK /[id number] / [id number] Name Value Range Interpretation Code Description Data Tonya rce(s) Supporting Document(s ) ID Date Data Source [id number] 07/24/2019 02:25:18 PM EDT [facility] PHYSICAL THERAPY EVALUATION(AMBULATORY S URGERY, EMERGENCY ROOM & RECOVERY ROOM PATIENTS)Patient: Minesh Green (64 y.o . male)Date: 07/24/2019Primary Diagnosis and Medical History: Complex tear of medial meniscus of rightknee, unspecified whether old or current tear, initial encounter [ S83.231A]Procedure(s) (LRB):ARTHROSCOPIC Partial MEDIAL MENISECTOMY and Chondro plasty RIGHT KNEE (Right)Day of SurgeryPast Medical History:Diagnosis Date Aneurysm (HCC) thorasic GERD (gastroesophageal reflux disease) Hypercholesterolemia Sleep apne aPast Surgical History:Procedure Laterality Date HX APPENDECTOMY HX ORTHOPAEDIC bila t knee sx and left rotator cuff sxPatient Active Problem ListDiagnosis Code TRANG on CPAP G47.33, Z99.89 Obesity (BMI 30.0-34.9) E66.9 Mild intermittent asthma without c omplication J45.20Prior Level of Function/Home Situation: independentHome SituationHome Environment: Private residence# Steps to Enter: 0One/Two Stor y Residence: Two story# of Interior Steps: 15Interior Rails: BothLift Chair Availab le: NoLiving Alone: NoSupport Systems: Spouse/Significant Other/PartnerPatient Expects to be Discharged to:: Private residenceCurrent DME Used/Available at H ome: NoneOrdered Weight Bearing Status: right as toleratedEquipment: caneCritica l Behavior:Neurologic State: AlertOrientation Level: Oriented G3Jldiggvlb: Follows com mandsSafety/Judgement: Awareness of environmentTransfers:Overall level of as sistance required following instruction: supervision/set-upgiven verbal and visua l using cane.Ambulation:Weight bearing status during ambulation:Distance (ft): 50 Feet (ft)Assistive Device: Cane, straightAmbulation - Level of Assistance : SupervisionStair Management:Number of Stairs Trained: 7Stairs - Level of Suze tance: SupervisionRail Use: Left (cane on R)Strength/ROM Limitations:WNL; except R knee limitedPain:Pain Scale 1: Numeric (0 - 10)Pain Intensity 1: 4Pain Location 1: K neeEducation:Role of P.T. explained to the patient: ? Yes ? No Top ics addressed: Comments:? Device use and technique Straight caneCOG over BOS3 point stance with RLE WBATTechniques for transfers and sta irs.? Transfer technique Pt demonstrated safea bility to transfer using cane and with RLE WBAT with supervision? Gait training Pt demonstrated safe abilityto amb utilizin g a cane and a 3 point gait pattern with RLE WBAT withsupervision.? Stair training Pt demonstrated safe abilityto negotiate st airs utilizing correct technique and using a cane withsupervision.Patient was educate d on techniques for above tasks, demonstrated understanding,and utilized correct techn iques to perform tasks safely. Pt was educated onactivity pacing and safety aw areness. Pt was instructed on quad sets, heelslides, and ankle pumps.Patient is d ischarged from physical therapy at this time.Edison Hunt, PT, DPT Time Calc ulation: 15 mins Name Value Range Interpretation Code Description Data Tonya rce(s) Supporting Document(s ) ID Date Data Source [id number] 07/24/2019 02:18:08 PM EDT [facility] 1410 Physical therapist present. Cane wa lking including stairs reviewed and donewith pt. Pt tolerated well Name Value Range Interpretation Code Description Data Tonya rce(s) Supporting Document(s ) ID Date Data Source [id number] 07/24/2019 11:50:22 AM EDT [facility] BRIEF OPERATIVE NOTEDate of Procedure: 1 Preoperative Diagnosis: Complex tear of medial meniscus of right knee,unspeci fied whether old or current tear, initial encounter [S83.170Q]Postoperative Diagno sis: SAMEProcedure(s):ARTHROSCOPIC Partial MEDIAL MENISECTOMY and Chondroplasty R IGHT KNEESurgeon(s) and Role: * Hector Kapoor MD - PrimarySurgical Deputy Register Of Deeds: n oneSurgical Staff:Circ-1: Alexei Solorio RNCirc-Relief: Eveline Horner RNScrclayton Tech-1: Evgeny Hunter RN-Relief: Yifan Mcdonald RNEvent Time In Ti me OutIncision Start 1042Incision Close 1100Anesthesia: GeneralEstimated Blood L oss: minSpecimens: * No specimens in log *Findings: TMM And OA PFComplications: noneImplants: * No implants in log * Name Value Range Interpretation Code Description Data Tonya rce(s) Supporting Document(s ) ID Date Data Source [id number] 07/24/2019 11:17:39 AM EDT [facility] Procedure(s):ARTHROSCOPIC Partial MEDIAL MENISECTOMY and Chondroplasty RIGHT KNEE.generalAnesthesia Post EvaluationMu ltimodal analgesia: multimodal analgesia used between 6 hours prior toanesthesia start to PACU dischargePatient location during evaluation: PACUPatient participation: c omplete - patient participatedLevel of consciousness: awakePain management: jamarcus quateAirway patency: patentAnesthetic complications: noCardiovascular status: acceptableRespiratory status: acceptableHydration status: acceptableVi tals Value Taken TimeBP 113/81 07/24/2019 11:16 AMTempPulse 72 07/24/2019 11:16 AM Resp 14 07/24/2019 11:16 AMSpO2 99 % 07/24/2019 11:16 AM Name Value Range Interpretation Code Description Data Tonya rce(s) Supporting Document(s ) ID Date Data Source [id number] 07/24/2019 10:50:51 AM EDT [facility] Relevant ProblemsNo relevant active prob lemsAnesthetic HistoryNo history of anesthetic complicationsReview of System s / Medical HistoryPatient summary reviewed, nursing notes reviewed and pertinent lab s reviewedPulmonarySleep apneaAsthma Neuro/PsychWithin defined limits Cardiov ascularExercise tolerance: >4 METSGI/Hepatic/RenalGERD: well controlle d Endo/OtherMorbid obesity Other FindingsPhysical ExamAirwayMallampati: I IITM Distance: 4 - 6 cmNeck ROM: normal range of motionMouth opening: Normal Cardiovas cularRhythm: regularRate: normal DentalDentition: Poor dentitionPulmonary Decreased breath sounds AbdominalGI exam deferred Other FindingsAnesthetic Annemarie A: 3Anesthesia type: generalAnesthetic plan and risks discussed with: Patient Name Value Range Interpretation Code Description Data Tonya rce(s) Supporting Document(s ) ID Date Data Source [id number] 07/24/2019 10:24:19 AM EDT [facility] H&P Update:Minesh Green was seen and nelida logan.History and physical has been reviewed. The patient has been examined. Therehave been no significant clinical changes since the completion of the orig inallydated History and Physical. Name Value Range Interpretation Code Description Data Tonya rce(s) Supporting Document(s ) ID Date Data Source [id number] 07/24/2019 08:00:16 AM EDT [facility] H&P needs update. No orders. Needs conse nts. NPO, took Metoprolol, Lisinopril,Pepcid @ 0545. [facility] wipes done. Right knee clipp ed. Pt taking Augmentin since07/21/19 for cold symptoms as per primary MD. Pt conf irar surgical site rightknee Name Value Range Interpretation Code Description Data Tonya rce(s) Supporting Document(s ) ID Date Data Source [id number] 07/21/2019 03:55:03 PM EDT [facility] Patient states he is having right knee s urgery. Name Value Range Interpretation Code Description Data Tonya rce(s) Supporting Document(s ) ID Date Data Source [id number] 07/21/2019 10:27:09 AM EDT [facility] Chief ComplaintThe Chief Complaint is: R ight knee.Reason For VisitVisit for: Initial Evaluation.History of Present IllnessRic my Green is a 64 year old male. Allergy list reviewed Visit for: Right Knee Medication reconciliationperformed Right Knee PainPatient is present for an evalu ation of the right knee. Patient has complaintsof pain in his knee that gets worse with use and better with rest. Patient hascomplaints of pain when walking, usin g stairs and getting in and out of a chair.Patient had a recent MRI obtained of the right knee at [facility].Current Medication Atorvastatin Calcium 10 MG Tablet 0 da ys, 0 refillsMedication list reviewed.Past Medical/Surgical HistoryReported:No hist ory of prior surgical procedures.Surgical / Procedural: Knee Surgery, Right.Diagnose s:HypertensionHypertension.Nonorganic sleep apnea.Pure hypercholesterolemiaSurgical: Rotator cuff repair Knee surgerySocial HistoryBehavioral: No tobacco use, no p revious smokeless tobacco use, and no previoussmokeless tobacco use. Not a cu rrent smokeless tobacco user, not a currentsmokeless tobacco user, and smoki ng status: Never smoker. Smoking status.Alcohol: Not using alcohol and no t using alcohol. Having stopped drinkingalcohol.Drug Use: Not using drug s and not using drugs.Allergies No Known AllergiesFamily HistoryFamily medical hi story Oncologic disorderMaternal: Allergies Cardiovascular disorder Gastrointestinal disorder Esophageal reflux Oncologic disorder Oncologic disorderReview Of Sys temsSystemic: No fever, no chills, and no recent weight change.Head: No headache.N micheline: No neck pain.Otolaryngeal: No epistaxis and no sore throat.Cardiovascular: No ch est pain or discomfort and no palpitations.Pulmonary: No dyspnea and n o cough.Gastrointestinal: No abdominal pain.Genitourinary: No hematuria, no uri nary loss of control, and no .Endocrine: No polydipsia.Hemat ologic: No easy bleeding and no tendency for easy bruising.Musculoskeletal: No lower back pain. No muscle aches and no localized jointpain.Skin: No rash.Physical Finding sMusculoskeletal System:Knee:Right Knee: Examined. Trace Effusion. Tenderne ss on palpation at themedial joint line. Pain was elicited at the extreme limits of the range ofmotion. A Sherie test medially was positive. No erythema. No warmth. Patella demonstrated no crepitus. Anterior aspect was not ten rudolph onpalpation. Posterior aspect was not tender on palpation. Patellofemoralre gion was not tender on palpation. Medial patellar retinaculum was nottender on pa lpation. Lateral patellar retinaculum was not tender onpalpation. Infrapatellar tendon was not tender on palpation. Pes anserinuswas not tender on palpation. Medial collateral ligament was not tender onpalpation. Lateral collateral ligam ent was not tender on palpation. Notenderness on palpation at the lateral joint line. No laxity of the medialcollateral ligament. No laxity of the lateral collateral ligament. Noanterior drawer sign was present. N o posterior drawer sign was present. ALachman test did not demonstrate one pl ane anterior instability. Anterolateral rotary instability with no active pivot shift. A Sherie testlaterally was negative.Skin: No ecchymosis on the rig ht knee.Injury / Incision Site: Right knee showed no incision.TestsImaging:MRI Scan :Reviewed Reviewed MRI of the Right Knee Obtained at [facility] on 06/21/19IMPRESSION: N ew vertical tear involving the inner margin of the posterior hornof the medial menis cus with an associated flipped/displaced meniscal fragment asabove.Assessment Ac tribal medial meniscus tear -left Arthralgia of the left knee/patella/tibia/fibulaTherap yDiscussed benefits, risks and alternatives to treatment:1. Live with the problem2. Non-surgical care including but not limited to pills, injections, therapy andbracing .3. MRI or other diagnostic testing4. Surgery - including arthroscopy-based and open t echniques. Each case isindividualized.Counseling/Education E ducational resources were provided to the patient regarding their conditionThe pat ient was advised of the three general categories of treatment available:1. Yun e with the problem and make adjustments.2. Nonoperative care including pills, injec tions, physical therapy, bracing(where applicable), home exercises.3. Surgical care including arthroscopic or open techniques.Discussed Discussion of orth opedic surgery limitations and risks The risks and benefitsof surgery were discus sed with the patient including but not limited to:Infection, falilure of healin g, persistent symptoms, potential need for repeatsurgery, bleeding, nerve problems, vascular problems and persistent symptoms.Other consequences can occur, a nd they need to be weighed against the potentialoutcome without surgeryWe talke d about pills injections physical therapy anti-inflammatories brace. Hehas had ar throscopy in the past. He like to move along with arthroscopy. Wetalked about the po stoperative care and the recovery time. The return to work.Questions were answered t o the best of my ability.Meniscal tears can be acute or chronic. When they are acut e and in an otherwisehealthy joint, it is commonly advised to get an MRI and discu ss nonsurgical vs.surgical treatment. Chronic meniscal tears are more likely t o be associatedwith damage to the joint surface and tend to be more difficult to treat becauseof the associated injuries.I advised of conservative treatments to in clude NSAIDs, cortisone injections,physical therapy, bracing and ice. He states he h as had a knee arthroscopy inthe past for a meniscal tear. He is looking for aMenisc al tears can be acute or chronic. When they are acute and in an otherwisehealthy bernard nt, it is commonly advised to get an MRI and discuss nonsurgical vs.surgical treatmen t. Chronic meniscal tears are more likely to be associatedwith damage to the joint hudson rface and tend to be more difficult to treat becauseof the associated injuries.Menisc us surgery was discussed. A meniscal tear is not normal cartilage. Whena meniscectom y is performed abnormal tissue is removed and the remainingcartilage is also not alexei l. Risks exist including but not limited topersistent pain, the possibility of a re-tear, swelling, and the need forfurther surgery. When arthritic degeneration is present meniscus surgery cannotremove the arthritis, which may be a persistent pro blem. Other risks, such asinfection, scar pain, and overlapping risks of surgery i n general pertain. Evenin cases of a "successful meniscectomy" some people beckman ve pain at a reduced levelthan before surgery and it is possible that surgery may not help at all.Meniscus surgery is not a guarantee of a return to prior function. Rehabilitation may address some of the surrounding gait and functional issuesaf ter meniscectomy. 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 Name Value Range Interpretation Code Description Data Tonya rce(s) Supporting Document(s ) ID Date Data Source [id number] 07/17/2019 06:37:00 PM EDT N EXTGEN ([facility]) [id number] Name Value Range Interpretation Description Data Sup porting Code Source(s) Document(s ) INR in Platelet 1.0 Normal (applies to INR NEXTG EN poor plasma by non-numeric ([place] Coagulation results) Medical) assay Reference Range 0.9- 1.1Moderate-intensity Warfarin Therapy 2.0-3.0Higher-intensity Warfarin Therapy 3.0-4.0 Prothrombin time (PT) 10.5 sec 9.0-11.5 Normal (applies to PT NEXTGEN ([place] non-numeric results) Medical) For more information on this test, go to:http://education.Adan/faq/NPB845 ID Date Data Source [id number] 07/17/2019 06:37:00 PM EDT N EXTGEN ([facility]) [id number] Name Value Range Interpretation Description Data Sup porting Code Source(s) Document(s ) Leukocytes 7.0 3.8-10.8 Normal (applies WHITE BLOOD NEXTGEN [#/volume] in Thousand to non-numeric CELL COUNT ([place] Blood by /uL results) Medical) Automated count Hemoglobin 13.3 13.2-17. Normal (applies HEMOGLOBIN NEXTGEN [Mass/volume] in g/dL 1 to non-numeric ([facility] d Blood results) Medical) Hematocrit 39.1 % 38.5-50. Normal (applies HEMATOCRIT NEXTGEN [Volume 0 to non-numeric ([place] Fraction] of results) Medical) Blood by Automated count Erythrocytes 4.06 4.20-5.8 Below low normal RED BLOOD NEXTGEN [#/volume] in Million/ 0 CELL COUNT ([place] Blood by uL Medical) Automated count Erythrocyte mean 34.0 32.0-36. Normal (applies MCHC NEXTGEN corpuscular g/dL 0 to non-numeric ([place] hemoglobin results) Medical) concentration [Mass/volume] by Automated count Erythrocyte mean 32.8 pg 27.0-33. Normal (applies MCH NEXTGEN corpuscular 0 to non-numeric ([place] hemoglobin results) Medical) [Entitic mass] by Automated count Erythrocyte mean 96.3 fL 80.0-100 Normal (applies MCV NEXTGEN corpuscular .0 to non-numeric ([place] volume [Entitic results) Medical) volume] by Automated count Erythrocyte 12.5 % 11.0-15. Normal (applies RDW NEXTGEN distribution 0 to non-numeric ([place] width [Ratio] by results) Medical) Automated count Platelets 202 140-400 Normal (applies PLATELET NEXTGEN [#/volume] in Thousand to non-numeric COUNT ([place] Blood by /uL results) Medical) Automated count Lymphocytes [phone] Normal (applies ABSOLUTE NEXTGEN [#/volume] in cells/uL to non-numeric LYMPHOCYTES ([place] Blood by results) Medical) Automated count Platelet mean 12.2 fL 7.5-12.5 Normal (applies MPV NEXTGEN volume [Entitic to non-numeric ([place] volume] in Blood results) Medical) by Miky Monocytes 742 200-950 Normal (applies ABSOLUTE NEXTGEN [#/volume] in cells/uL to non-numeric MONOCYTES ([place] Blood by results) Medical) Automated count Neutrophils 4039 1500-780 Normal (applies ABSOLUTE NEXTGEN [#/volume] in cells/uL 0 to non-numeric NEUTROPHILS ([place] Blood by results) Medical) Automated count Eosinophils 378 15-500 Normal (applies ABSOLUTE NEXTGEN [#/volume] in cells/uL to non-numeric EOSINOPHILS ([place] Blood by results) Medical) Automated count Basophils 28 0-200 Normal (applies ABSOLUTE NEXTGEN [#/volume] in cells/uL to non-numeric BASOPHILS ([place] Blood by results) Medical) Automated count Monocytes/100 10.6 % 0-13 Normal (applies MONOCYTES NEXTGEN leukocytes in to non-numeric ([place] Blood by results) Medical) Automated count Neutrophils/100 57.7 % 38-80 Normal (applies NEUTROPHILS NEXTGE N leukocytes in to non-numeric ([place] Blood by results) Medical) Automated count Lymphocytes/100 25.9 % 15-49 Normal (applies LYMPHOCYTES NEXTGE N leukocytes in to non-numeric ([place] Blood by results) Medical) Automated count Eosinophils/100 5.4 % 0-8 Normal (applies EOSINOPHILS NEXTGE N leukocytes in to non-numeric ([place] Blood by results) Medical) Automated count Basophils/100 0.4 % 0-2 Normal (applies BASOPHILS NEXTGEN leukocytes in to non-numeric ([place] Blood by results) Medical) Automated count ID Date Data Source [id number] 07/17/2019 06:37:00 PM EDT N EXTGEN ([facility]) [id number] Name Value Range Interpretation Description Data Sup porting Code Source(s) Document(s ) aPTT in 26 sec 22-34 Normal (applies PARTIAL NEXTGEN Platelet poor to non-numeric THROMBOPLASTIN ([place] and plasma by results) TIME, ACTIVATED Medical) Coagulation assay This test has not been validated for mon itoringunfractionated heparin therapy. For testing thatis validated for this type of therapy, please referto the Heparin Anti-Xa assay (test code 27467). For césar tional information, please refer tohttp://education.Klarna/faq/AEJ537(This link is being provided for informational/educational purposes only.) ID Date Data Source [id number] 07/17/2019 06:37:00 PM EDT N EXTGEN ([facility]) [id number] Name Value Range Interpretation Description Data Sup porting Code Source(s) Document(s ) Glucose 91 mg/dL 65-99 Normal (applies to GLUCOSE NEXTGEN [Mass/volume non-numeric ([place] ] in Serum results) Medical) or Plasma Fasting reference interval Creatinine 0.90 mg/dL 0.70-1.25 Normal (applies CREATININE NEXTGEN [Mass/volume] in to non-numeric ([place] Serum or Plasma results) Medical) For patients >49 years of age, the refer ence limitfor Creatinine is approximately 13% higher for peopleidentified as -Senegalese. Urea nitrogen 15 mg/dL 7-25 Normal (applies UREA NITROGEN NEXTGE N [Mass/volume] in to non-numeric ([facility]UN) [facility]) Glomerular 89 > OR = Normal (applies eGFR NON-AFR. NEXTGEN filtration rate/1.73 mL/min/1.73m2 60 to non-numeric NORTHERN IRISH ([place] sq M.predicted results) Medical) [Volume Rate/Area] in Serum, Plasma or Blood by Creatinine-based formula (MDRD) Glomerular 103 > OR = Normal (applies eGFR NEXTGEN filtration rate/1.73 mL/min/1.73m2 60 to non-numeric [place]THER[place] ([place] sq M predicted among results) Medical) blacks [Volume Rate/Area] in Serum or Plasma by Creatinine-based formula (MDRD) Potassium 4.4 mmol/L 3.5-5.3 Normal (applies POTASSIUM NEXTGEN [Moles/volume] in to non-numeric ([place] Serum or Plasma results) Medical) Sodium 141 mmol/L 135-146 Normal (applies SODIUM NEXTGEN [Moles/volume] in to non-numeric [facility] Medical) Urea NOT APPLICABLE 6-22 BUN/CREATININE NEXTGEN nitrogen/Creatinine RATIO ([place] [Mass Ratio] in Medical) Serum or Plasma Chloride 108 mmol/L 98-110 Normal (applies CHLORIDE NEXTGEN [Moles/volume] in to non-numeric ([place] Serum or Plasma results) Medical) Carbon dioxide, 29 mmol/L 20-32 Normal (applies CARBON DIOXIDE NEX TGEN total [Moles/volume] to non-numeric ([place] in Serum or Plasma results) Medical) Calcium 10.4 mg/dL 8.6-10.3 Above high CALCIUM NEXTGEN [Mass/volume] in normal ([place] Serum or Plasma Medical) Albumin/Globulin 1.8 (calc) 1.0-2.5 Normal (applies ALBUMIN/GLOBUL N EXTGEN [Mass Ratio] in to non-numeric IN RATIO ([place] Serum or Plasma results) Medical) Globulin 2.5 g/dL(calc) 1.9-3.7 Normal (applies GLOBULIN NEXTGEN [Mass/volume] in to non-numeric ([facility] by calculation results) Medical) Albumin 4.4 g/dL 3.6-5.1 Normal (applies ALBUMIN NEXTGEN [Mass/volume] in to non-numeric ([place] Serum or Plasma results) Medical) Protein 6.9 g/dL 6.1-8.1 Normal (applies PROTEIN, TOTAL NEXTGEN [Mass/volume] in to non-numeric ([place] Serum or Plasma results) Medical) Bilirubin.total 0.6 mg/dL 0.2-1.2 Normal (applies BILIRUBIN, NEXTGEN [Mass/volume] in to non-numeric TOTAL ([place] Serum or Plasma results) Medical) Aspartate 17 U/L 10-35 Normal (applies AST NEXTGEN aminotransferase to non-numeric ([place] [Enzymatic results) Medical) activity/volume] in Serum or Plasma Alkaline phosphatase 50 U/L 40-115 Normal (applies ALKALINE NEX TGEN [Enzymatic to non-numeric PHOSPHATASE ([place] activity/volume] in results) Medical) Serum or Plasma Alanine 22 U/L 9-46 Normal (applies ALT NEXTGEN aminotransferase to non-numeric ([place] [Enzymatic results) Medical) activity/volume] in Serum or Plasma ID Date Data Source [id number] 06/22/2019 01:44:00 PM EDT N EXTGEN ([facility]) [id number] Name Value Range Interpretation Description Data Sup porting Code Source(s) Document(s ) Prostate 0.4 ng/mL <=4.0 Normal (applies to PSA,TOTAL NEXTGEN specific Ag non-numeric ([place] [Mass/volume results) Medical) ] in Serum or Plasma The total PSA value from this assay syst em is standardized against the WHO standard. The test result will be approximately 20% lower when compared to the equimolar-standardized t otal PSA ([facility]). Comp arison of serial PSA results should be interpreted with this fact in mind. This test was performed using the Siemens (Mobyko) chemilumine scent method. Values obtained from diffe rent assay methods cannot be used interchangeably. PSA levels, regardless of value, should not be interpreted as absolute evidence of the presence or absence of disease. ID Date Data Source [id number] 06/22/2019 01:44:00 PM EDT N EXTGEN ([facility]) [id number] Name Value Range Interpretation Description Data Sup porting Code Source(s) Document(s ) Cobalamin 311 pg/mL 200-1100 Normal (applies VITAMIN B12 NEXTGEN (Vitamin B12) to non-numeric ([place] [Mass/volume] results) Medical) in Serum or Plasma Please note: although the reference rang e for Vitamin B12 is 200-1100 pg/mL, it has been reported that between 5 and 10% of patients with values between 200 and 400 pg/mL may exp erience neuropsychiatric and hematologic abnormalities due to occult B12 deficiency; less than 1% of patients with values above 400 pg/mL will have symptoms. ID Date Data Source [id number] 06/22/2019 01:44:00 PM EDT N EXTGEN ([facility]) [id number] Name Value Range Interpretation Description Data Sup porting Code Source(s) Document(s ) Appearance of Clear Clear Normal (applies APPEARANCE NEXTGEN Urine to non-numeric ([place] results) Medical) Color of Urine Yellow Yellow Normal (applies COLOR NEXTGEN to non-numeric ([place] results) Medical) Bilirubin.tota Negative Negative Normal (applies BILIRUBIN NEXTGEN l [Presence] to non-numeric ([place] in Urine by results) Medical) Test strip pH of Urine by 6.0 5.0-8.0 Normal (applies PH NEXTGEN Test strip to non-numeric ([place] results) Medical) Specific 1.007 1.001-1.03 Normal (applies SPECIFIC NEXTGEN gravity of 5 to non-numeric GRAVITY ([place] Urine by Test results) Medical) strip Glucose Negative Negative Normal (applies GLUCOSE NEXTGEN [Presence] in to non-numeric ([place] Urine by Test results) Medical) strip Hemoglobin Negative Negative Normal (applies OCCULT BLOOD NEXTGEN [Presence] in to non-numeric ([place] Urine by Test results) Medical) strip Protein Negative Negative Normal (applies PROTEIN NEXTGEN [Presence] in to non-numeric ([place] Urine by Test results) Medical) strip Nitrite Negative Negative Normal (applies NITRITE NEXTGEN [Presence] in to non-numeric ([place] Urine by Test results) Medical) strip Ketones Negative Negative Normal (applies KETONES NEXTGEN [Presence] in to non-numeric ([place] Urine by Test results) Medical) strip Leukocyte Negative Negative Normal (applies LEUKOCYTE NEXTGEN esterase to non-numeric ESTERASE ([place] [Presence] in results) Medical) Urine by Test strip Leukocytes None Seen <or=5 Normal (applies WBC NEXTGEN [#/area] in to non-numeric ([place] Urine sediment results) Medical) by Microscopy high power field Bacteria None Seen None Seen Normal (applies BACTERIA NEXTGEN [#/area] in to non-numeric ([place] Urine sediment results) Medical) by Microscopy high power field Hyaline casts None Seen None Seen Normal (applies HYALINE CAST NEXTGEN [#/area] in to non-numeric ([place] Urine sediment results) Medical) by Microscopy low power field Epithelial None Seen <or=5 Normal (applies SQUAMOUS NEXTGEN cells.squamous to non-numeric EPITHELIAL ([place] [#/area] in results) CELLS Medical) Urine sediment by Microscopy high power field Erythrocytes None Seen <or=2 Normal (applies RBC NEXTGEN [#/area] in to non-numeric ([place] Urine sediment results) Medical) by Microscopy high power field ID Date Data Source [id number] 06/22/2019 01:44:00 PM EDT N EXTGEN ([facility]) [id number] Name Value Range Interpretation Description Data Sup porting Code Source(s) Document(s ) Erythrocytes 4.06 4.20-5. Below low normal RBC NEXTGEN [#/volume] in Million/u 80 ([place] Blood by L Medical) Automated count Leukocytes 5.5 3.8-10. Normal (applies WBC NEXTGEN [#/volume] in Thousand/ 8 to non-numeric ([place] Blood by uL results) Medical) Automated count Hemoglobin 13.5 g/dL 13.2-17 Normal (applies HEMOGLOBIN NEXTGEN [Mass/volume] .1 to non-numeric ([place] in Blood results) Medical) Erythrocyte 34.4 g/dL 32.0-36 Normal (applies MCHC NEXTGEN mean .0 to non-numeric ([place] corpuscular results) Medical) hemoglobin concentration [Mass/volume] by Automated count Erythrocyte 33.3 pg 27.0-33 Above high MCH NEXTGEN mean .0 normal ([place] corpuscular Medical) hemoglobin [Entitic mass] by Automated count Hematocrit 39.3 % 38.5-50 Normal (applies HEMATOCRIT NEXTGEN [Volume .0 to non-numeric ([place] Fraction] of results) Medical) Blood by Automated count Erythrocyte 96.8 fL 80.0-10 Normal (applies MCV NEXTGEN mean 0.0 to non-numeric ([place] corpuscular results) Medical) volume [Entitic volume] by Automated count Platelet mean 11.9 fL 7.5-12. Normal (applies MPV NEXTGEN volume [Entitic 5 to non-numeric ([place] volume] in results) Medical) Blood by Miky Erythrocyte 12.6 % 11.0-15 Normal (applies RDW NEXTGEN distribution .0 to non-numeric ([place] width [Ratio] results) Medical) by Automated count Neutrophils/100 62.3 % 38-80 Normal (applies TOTAL NEXTGEN leukocytes in to non-numeric NEUTROPHILS,% [facility]) Automated count Platelets 186 140-400 Normal (applies PLATELET COUNT NEXTGEN [#/volume] in Thousand/ to non-numeric ([place] Blood by uL results) Medical) Automated count Basophils/100 0.5 % 0-2 Normal (applies BASOPHILS,% NEXTGEN leukocytes in to non-numeric ([place] Blood by results) Medical) Automated count Monocytes/100 8.9 % 0-13 Normal (applies MONOCYTES,% NEXTGEN leukocytes in to non-numeric ([place] Blood by results) Medical) Automated count Lymphocytes/100 22.5 % 15-49 Normal (applies TOTAL NEXTGEN leukocytes in to non-numeric LYMPHOCYTES,% [facility]) Automated count Eosinophils/100 5.8 % 0-8 Normal (applies EOSINOPHILS,% NEXT GEN leukocytes in to non-numeric ([place] Blood by results) Medical) Automated count Monocytes 490 200-950 Normal (applies MONOCYTES,ABSO NEXTGEN [#/volume] in cells/uL to non-numeric LUTE ([place] Blood by results) Medical) Automated count Basophils 28 0-200 Normal (applies BASOPHILS,ABSO NEXTGEN [#/volume] in cells/uL to non-numeric LUTE ([place] Blood by results) Medical) Automated count Eosinophils 319 15-500 Normal (applies EOSINOPHILS,AB NEXTGEN [#/volume] in cells/uL to non-numeric SOLUTE ([place] Blood by results) Medical) Automated count Neutrophils 3427 1500-78 Normal (applies NEUTROPHILS,AB NEXTGEN [#/volume] in cells/uL 00 to non-numeric SOLUTE ([place] Blood by results) Medical) Automated count Lymphocytes 1238 850-390 Normal (applies LYMPHOCYTES,AB NEXTGEN [#/volume] in cells/uL 0 to non-numeric SOLUTE ([place] Blood by results) Medical) Automated count Cell SEE Normal (applies DIFFERENTIAL NEXTGEN Fractions/Diffe COMMENT to non-numeric ([place] rential results) Medical) [Interpretation ] in Blood An instrument differential was performed . ID Date Data Source [id number] 06/22/2019 01:44:00 PM EDT N EXTGEN ([facility]) [id number] Name Value Range Interpretation Description Data Sup porting Code Source(s) Document(s ) Thyroxine 1.2 ng/dL 0.8-1.8 Normal (applies T4,FREE NEXTGEN (T4) free to non-numeric ([place] [Mass/volume] results) Medical) in Serum or Plasma ID Date Data Source [id number] 06/22/2019 01:44:00 PM EDT N EXTGEN ([facility]) [id number] Name Value Range Interpretation Description Data Sup porting Code Source(s) Document(s ) Thyrotropin 1.37 0.40-4.5 Normal (applies TSH NEXTGEN [Units/volume] mIU/L 0 to non-numeric ([place] in Serum or results) Medical) Plasma ID Date Data Source [id number] 06/22/2019 01:44:00 PM EDT N EXTGEN ([facility]) [id number] Name Value Range Interpretation Description Data Sup porting Code Source(s) Document(s ) Cholesterol.tot 2.9 calc <5.0 Normal (applies CHOLESTEROL/HDL NE XTGEN al/Cholesterol to non-numeric RATIO ([place] in HDL [Mass results) Medical) Ratio] in Serum or Plasma Cholesterol 130 <200 Normal (applies CHOLESTEROL,TOT NEXTGE N [Mass/volume] mg/dL to non-numeric AL ([place] in Serum or results) Medical) Plasma Cholesterol in 45 mg/dL >40 Normal (applies HDL CHOLESTEROL NEX TGEN HDL to non-numeric ([place] [Mass/volume] results) Medical) in Serum or Plasma Triglyceride 52 mg/dL <150 Normal (applies TRIGLYCERIDES NEXTGEN [Mass/volume] to non-numeric ([place] in Serum or results) Medical) Plasma Cholesterol in 72 <100 Normal (applies LDL-CHOLESTEROL NEX TGEN LDL mg/dL(ca to non-numeric ([place] [Mass/volume] lc) results) Medical) in Serum or Plasma by calculation LDL-C is now calculated using the Bravo -Perera calculation, which is a validated novel method providing better accuracy than the Friedewald equation in the estimation of LDL-C. Dominick REYNOLDS et al. EVY. 2013; 31019): 5465-2333 For additional information, sheila ruvalcaba refer to http://[employer].Klarna/fa q/ISN574 (This link is being provided for informational/educational pu rposes only.) Desirable range < 100 mg/dL for primary prevention; <70 mg/dL for patients with CHD or diabetic patients with > or = 2 CHD risk factors.

Cholesterol non 85 mg/dL(calc) <130 Normal (applies NON HDL NEX TGEN HDL [Mass/volume] to non-numeric CHOLESTEROL ([place] in Serum or Plasma results) Medical) For patients with diabetes plus 1 major ASCVD risk factor, treating to a non-HDL-C goal of <100 mg/dL (LDL-C of <70 mg/dL) is considered a therapeutic option.

ID Date Data Source [id number] 06/22/2019 01:44:00 PM EDT N EXTGEN ([facility]) [id number] Name Value Range Interpretation Description Data Sup porting Code Source(s) Document(s ) Urate 5.5 mg/dL 4.0-8.0 Normal (applies to URIC ACID NEXTGEN [Mass/volu non-numeric ([facility]] in results) Medical) Serum or Plasma Therapeutic target for gout patients: <6 .0 mg/dL

ID Date Data Source [id number] 06/22/2019 01:44:00 PM EDT N EXTGEN ([facility]) [id number] Name Value Range Interpretation Description Data Sup porting Code Source(s) Document(s ) Borrelia Negative Negative Normal (applies LYME DISEASE NEXTGEN burgdorferi to non-numeric AB(IGG),BLOT ([place] IgG Ab results) Medical) [Presence] in Serum by Immunoblot (IB) Borrelia Nonreactive Normal (applies 23 KD (IGG) NEXTGEN burgdorferi to non-numeric BAND ([place] 23kD IgG Ab results) Medical) [Presence] in Serum by Immunoblot (IB) Borrelia Nonreactive Normal (applies 28 KD (IGG) NEXTGEN burgdorferi to non-numeric BAND ([place] 28kD IgG Ab results) Medical) [Presence] in Serum by Immunoblot (IB) Borrelia Nonreactive Normal (applies 18 KD (IGG) NEXTGEN burgdorferi to non-numeric BAND ([place] 18kD IgG Ab results) Medical) [Presence] in Serum by Immunoblot (IB) Borrelia Nonreactive Normal (applies 30 KD (IGG) NEXTGEN burgdorferi to non-numeric BAND ([place] 30kD IgG Ab results) Medical) [Presence] in Serum by Immunoblot (IB) Borrelia Nonreactive Normal (applies 39 KD (IGG) NEXTGEN burgdorferi to non-numeric BAND ([place] 39kD IgG Ab results) Medical) [Presence] in Serum by Immunoblot (IB) Borrelia Nonreactive Normal (applies 41 KD (IGG) NEXTGEN burgdorferi to non-numeric BAND ([place] 41kD IgG Ab results) Medical) [Presence] in Serum by Immunoblot (IB) Borrelia Nonreactive Normal (applies 45 KD (IGG) NEXTGEN burgdorferi to non-numeric BAND ([place] 45kD IgG Ab results) Medical) [Presence] in Serum by Immunoblot (IB) Borrelia Nonreactive Normal (applies 66 KD (IGG) NEXTGEN burgdorferi to non-numeric BAND ([place] 66kD IgG Ab results) Medical) [Presence] in Serum by Immunoblot (IB) Borrelia Reactive Abnormal 58 KD (IGG) NEXTGEN burgdorferi (applies to BAND ([place] 58kD IgG Ab non-numeric Medical) [Presence] in results) Serum by Immunoblot (IB) Borrelia Nonreactive Normal (applies 93 KD (IGG) NEXTGEN burgdorferi to non-numeric BAND ([place] 93kD IgG Ab results) Medical) [Presence] in Serum by Immunoblot (IB) Borrelia Nonreactive Normal (applies 23 KD (IGM) NEXTGEN burgdorferi to non-numeric BAND ([place] 23kD IgM Ab results) Medical) [Presence] in Serum by Immunoblot (IB) Borrelia Negative Negative Normal (applies LYME DISEASE NEXTGEN burgdorferi to non-numeric AB(IGM),BLOT ([place] Ab.IgM band results) Medical) pattern [Interpretati on] in Serum by Immunoblot (IB) Borrelia Nonreactive Normal (applies 41 KD (IGM) NEXTGEN burgdorferi to non-numeric BAND ([place] 41kD IgM Ab results) Medical) [Presence] in Serum by Immunoblot (IB) Lyme immunoblot testing should only be p erformed on samples from patients who have had a Positive or Equivocal result in a screening assay. As per CDC criteria, a Lyme disease IgG immunoblot must show reactiv ity to at least 5 of 10 specific borrelial proteins to be considered positive; similarly, a positive Lyme disease IgM immunoblot requires reactivi ty to 2 of 3 specific borrelial proteins. Although considered negative, IgG reactivity to fewer specific borrelial proteins or IgM reactivity to only 1 protein may indicate recent B. burgdorferi infection and warrant testing of a later sample. A positive IgM but negative IgG result obtained more than a month after onset of symptoms likely repre sents a false-positive IgM result rather than acute Lyme disease. In rare instances, Lyme disease immunoblot reactivity may represent antibodies induced by exposure to other spirochetes. Borrelia burgdorferi Nonreactive Normal (applies to 39 KD (IGM) NEXTGEN ([place] 39kD IgM Ab non-numeric BAND Medical) [Presence] in Serum results) by Immunoblot (IB) ID Date Data Source [id number] 06/22/2019 01:44:00 PM EDT N EXTGEN ([facility]) [id number] Name Value Range Interpretation Description Data Sup porting Code Source(s) Document(s ) Calcidiol 21 ng/mL 30-100 Below low normal VITAMIN NEXTGEN [Mass/volume] D,25-OH,TOTAL, ([place] in Serum or IA Medical) Plasma Vitamin D Status 25-OH Vitamin D : Deficiency: <20 ng/mL Insufficiency: 20 - 29 ng/mL Optimal: > or = 30 ng/mL For 25-O H Vitamin D testing on patients on D2-supplementation and patients for whom quantitation of D2 and D3 fractions is required, the [employer](TM) 25-OH VIT D, (D2,D3), LC/MS/MS is recommended: order code [id number] ( patients >2yrs). For more information on this test, go to: http://[email or web address]/fa [email or web address]

ID Date Data Source [id number] 06/22/2019 01:44:00 PM EDT N EXTGEN ([facility]) [id number] Name Value Range Interpretation Description Data Sup porting Code Source(s) Document(s ) Hemoglobin 6.0 % of <5.7 Above high normal HEMOGLOBIN A1C NEXTGE N A1c/Hemoglobin total ([place] .total in Hgb [facility]) Blood For someone without known diabetes, a he moglobin A1c value between 5.7% and 6.4% is consistent with prediabetes and should be confirmed with a follow-up test. For someone with known d iabetes, a value <7% indicates that their diabetes is well controlled. A1c t argets should be individualized based on duration of diabetes, age, co-morbid conditions and other considerations. This assay result is cons istent with an increased risk of diabetes. Currently, no consens us exists for use of hemoglobin A1c for diagnosis of diabetes for children.

ID Date Data Source [id number] 06/22/2019 01:44:00 PM EDT N EXTGEN ([facility]) [id number] Name Value Range Interpretation Description Data Sup porting Code Source(s) Document(s ) Mumps virus 75.60 Normal (applies MUMPS VIRU NEXTGEN IgG Ab AU/mL to non-numeric ANTIBODY (IGG) ([place] [Units/volume] results) [facility]) in Serum by Immunoassay AU/mL Interpretation <9.00 Negative 9.00-10.99 Equivocal >10.99 Positive A positive result indicates that the patient has antibody to mumps virus. It does not differentiate between an active or past infection. The clinical diagnosis must be interpreted in conjuncti on with clinical signs and symptoms of the patient.

ID Date Data Source [id number] 06/22/2019 01:44:00 PM EDT N EXTGEN ([facility]) [id number] Name Value Range Interpretation Description Data Sup porting Code Source(s) Document(s ) Rubella virus 13.20 Normal (applies RUBELLA NEXTGEN IgG Ab index to non-numeric ANTIBODY (IGG) ([place] [Units/volume] results) Medical) in Serum or Plasma by Immunoassay Index Interpretation <0.90 Not consistent with immunity 0. 90-0.99 Equivocal >or=1.00 Consistent with immunity The presence of rubella IgG antibody suggests immunization o r past or current infection with rubella virus.

ID Date Data Source [id number] 06/22/2019 01:44:00 PM EDT N EXTGEN ([facility]) [id number] Name Value Range Interpretation Description Data Sup porting Code Source(s) Document(s ) Measles virus >300.00 Normal (applies MEASLES NEXTGEN IgG Ab to non-numeric ANTIBODY (IGG) ([place] [Units/volume] results) Medical) in Serum by Immunoassay AU/mL Interpretation <25.00 Negative 25.00-29.99 Equivocal >29.99 Positive A positive result indicates that the patient has antibody to measles virus. It does not differentiate between an active or past infection. The clinical diagnosis must be interpreted in conjunct ion with clinical signs and symptoms of the patient. For additional information, please refer to http://education.[email or web address]/fa q/[email or web address] (This link is being provided for informational/educational pu rposes only.)

ID Date Data Source [id number] 06/22/2019 01:44:00 PM EDT N EXTGEN ([facility]) [id number] Name Value Range Interpretation Description Data Sup porting Code Source(s) Document(s ) Borrelia Negative Negative Normal (applies LYME DISEASE NEXTGEN burgdorferi to non-numeric AB(IGG),BLOT ([place] IgG Ab results) Medical) [Presence] in Serum by Immunoblot (IB) Borrelia Nonreactive Normal (applies 18 KD (IGG) NEXTGEN burgdorferi to non-numeric BAND ([place] 18kD IgG Ab results) Medical) [Presence] in Serum by Immunoblot (IB) Borrelia Nonreactive Normal (applies 23 KD (IGG) NEXTGEN burgdorferi to non-numeric BAND ([place] 23kD IgG Ab results) Medical) [Presence] in Serum by Immunoblot (IB) Borrelia Nonreactive Normal (applies 39 KD (IGG) NEXTGEN burgdorferi to non-numeric BAND ([place] 39kD IgG Ab results) Medical) [Presence] in Serum by Immunoblot (IB) Borrelia Nonreactive Normal (applies 28 KD (IGG) NEXTGEN burgdorferi to non-numeric BAND ([place] 28kD IgG Ab results) Medical) [Presence] in Serum by Immunoblot (IB) Borrelia Nonreactive Normal (applies 30 KD (IGG) NEXTGEN burgdorferi to non-numeric BAND ([place] 30kD IgG Ab results) Medical) [Presence] in Serum by Immunoblot (IB) Borrelia Nonreactive Normal (applies 41 KD (IGG) NEXTGEN burgdorferi to non-numeric BAND ([place] 41kD IgG Ab results) Medical) [Presence] in Serum by Immunoblot (IB) Borrelia Nonreactive Normal (applies 45 KD (IGG) NEXTGEN burgdorferi to non-numeric BAND ([place] 45kD IgG Ab results) Medical) [Presence] in Serum by Immunoblot (IB) Borrelia Reactive Abnormal 58 KD (IGG) NEXTGEN burgdorferi (applies to BAND ([place] 58kD IgG Ab non-numeric Medical) [Presence] in results) Serum by Immunoblot (IB) Borrelia Nonreactive Normal (applies 66 KD (IGG) NEXTGEN burgdorferi to non-numeric BAND ([place] 66kD IgG Ab results) Medical) [Presence] in Serum by Immunoblot (IB) Borrelia Nonreactive Normal (applies 93 KD (IGG) NEXTGEN burgdorferi to non-numeric BAND ([place] 93kD IgG Ab results) Medical) [Presence] in Serum by Immunoblot (IB) Lyme immunoblot testing should only be p erformed on samples from patients who have had a Positive or Equivocal result in a screening assay. As per CDC criteria, a Lyme disease IgG immunoblot must show reactiv ity to at least 5 of 10 specific borrelial proteins to be considered positive. Although considered negative, reactivity to fewer borrelial protein s may indicate recent B. burgdor feri infection and warrant testing of a later sample. In rare instances, reactivity may represent antibodies induced by exposure to other spirochetes. ID Date Data Source [id number] 06/22/2019 01:44:00 PM EDT N EXTGEN ([facility]) [id number] Name Value Range Interpretation Description Data Sup porting Code Source(s) Document(s ) Borrelia <0.90 Normal (applies to LYME DISEASE NEXTGEN burgdorferi Ab non-numeric SCREEN ([place] [Units/volume] results) Medical) in Serum by Immunoassay Index Interpretation <0.90 Negative 0.90-1.09 Equivocal >1.09 Positive As recommended by the Food and Drug Administration (FDA), all samples with positive or equivocal results in a Borrelia burgdorfer i antibody screen will be tested using a blot method. Positive or equivocal sc reening test results should not be interpreted as truly positive until veri fied as such using a supplemental assay (e.g., B. burgdorferi blot ). The screening test and/or blot for B. burgdorferi antibodies ma y be falsely negative in early stages of Lyme disease, including the period wh en erythema migrans is apparent.

ID Date Data Source [id number] 06/22/2019 01:44:00 PM EDT N EXTGEN ([facility]) [id number] Name Value Range Interpretation Description Data Sup porting Code Source(s) Document(s ) Sodium 140 135-146 Normal (applies to SODIUM NEXTGEN [Moles/volu mmol/L non-numeric ([place] me] in results) Medical) Serum or Plasma Glucose 106 mg/dL 65-139 Normal (applies to GLUCOSE NEXTGEN [Mass/volum non-numeric ([place] e] in Serum results) Medical) or Plasma The glucose reference range is based on a non-fasting state. Chloride 110 mmol/L 98-110 Normal (applies CHLORIDE NEXTGEN [Moles/volume] in to non-numeric ([facility] nd Serum or Plasma results) Medical) Potassium 4.2 mmol/L 3.5-5.3 Normal (applies POTASSIUM NEXTGEN [Moles/volume] in to non-numeric ([facility] nd Serum or Plasma results) Medical) Carbon dioxide, 25 mmol/L 20-32 Normal (applies CARBON DIOXIDE NEX TGEN total to non-numeric ([place] [Moles/volume] in results) Medical) Serum or Plasma Creatinine 0.68 mg/dL 0.70-1.25 Below low normal CREATININE NEXTGEN [Mass/volume] in ([place] Serum or Plasma Medical) The upper reference limit for Creatinine is approximately 13% higher for people identified as -Senegalese. Urea nitrogen 16 mg/dL 7-25 Normal (applies UREA NITROGEN NEXTGE N [Mass/volume] in to non-numeric ([facility] d Serum or Plasma results) Medical) Calcium [Mass/volume] 10.3 mg/dL 8.6-10.3 Normal (applies CALCIUM N EXTGEN in Serum or Plasma to non-numeric ([facility] and results) Medical) Urea 24 (calc) 6-22 Above high BUN/CREATININE NEXTGEN nitrogen/Creatinine normal RATIO ([place] [Mass Ratio] in Serum Medical) or Plasma Globulin 2.3 1.9-3.7 Normal (applies GLOBULIN NEXTGEN [Mass/volume] in g/dL(calc) to non-numeric ([facility] Serum by calculation results) Medical) Albumin [Mass/volume] 4.2 g/dL 3.6-5.1 Normal (applies ALBUMIN NE XTGEN in Serum or Plasma to non-numeric ([facility] and results) Medical) Protein [Mass/volume] 6.5 g/dL 6.1-8.1 Normal (applies PROTEIN, TOT AL NEXTGEN in Serum or Plasma to non-numeric ([facility] and results) Medical) Bilirubin.total 0.7 mg/dL 0.2-1.2 Normal (applies BILIRUBIN,TOTAL NE XTGEN [Mass/volume] in to non-numeric [facility] results[facility] Medical) Alkaline phosphatase 48 U/L 40-115 Normal (applies ALKALINE NEX TGEN [Enzymatic to non-numeric PHOSPHATASE ([place] activity/volume] in results) Medical) Serum or Plasma Albumin/Globulin 1.8 (calc) 1.0-2.5 Normal (applies ALBUMIN/GLOBULI NEXTGEN [Mass Ratio] in Serum to non-numeric N RATIO ([place] or Plasma results) Medical) Alanine 29 U/L 9-46 Normal (applies ALT NEXTGEN aminotransferase to non-numeric [facility] [[facility] results[facility] Medical) activity/volume] in Serum or Plasma Aspartate 16 U/L 10-35 Normal (applies AST NEXTGEN aminotransferase to non-numeric [facility] [[facility] results) Medical) activity/volume] in Serum or Plasma Glomerular filtration 100 >=60 Normal (applies EGFR NON AFR NEXTGEN rate/1.73 sq mL/min/1.7 to non-numeric [place]THER[place] IRISH ([place] M.predicted [Volume 3m2 results) Medical) Rate/Area] in Serum, Plasma or Blood by Creatinine-based formula (MDRD) Glomerular filtration 115 >=60 Normal (applies EGFR NEXTGEN rate/1.73 sq M mL/min/1.7 to non-numeric [place]THER[place] IRISH ([place] predicted among 3m2 results) Medical) blacks [Volume Rate/Area] in Serum or Plasma by Creatinine-based formula (MDRD) Procedure Social History Code Duration Value Status Description Data Source(s ) ASSERTION 05/21/2020 completed coffee, NEXTGEN 12:00:00 AM occasionally ([facility]) 04/11/2020 Current completed Current non-smoker NEXTGE N 12:00:00 AM non-smoker ([facility]) Alcohol intake 04/11/2020 Current completed Current [place] 12:00:00 AM non-drinker non-drinker of [employer] EDT of alcohol alcohol (finding) [employer] (finding) Tobacco use and 04/11/2020 Never used completed Never used [facility] exposure 12:00:00 AM [employer] Cigarette 04/11/2020 UNK completed [facility] pack-years 12:00:00 AM [employer] Cigarettes 04/11/2020 UNK completed [facility] smoked current 12:00:00 AM [employer] (pack per day) [facility] [employer] [facility] Reported Smoking 04/11/2020 Never smoker completed Never smoker [place] 12:00:00 AM [employer] ASSERTION 12/05/2019 completed coffee, NEXTGEN 12:00:00 AM occasionally ([facility]) Cigarette 07/24/2019 UNK completed [facility] pack-years 12:00:00 AM [employer] Cigarettes 07/24/2019 UNK completed [facility] smoked current 12:00:00 AM [employer] (pack per day) [facility] [employer] Reported Smoking 07/24/2019 Never smoker completed Never smoker [place] 12:00:00 AM [employer] Vital Signs ID Date Data Source [id number] Name Value Range Interpretation Code Description Data Source(s) Body mass index 35.26 Overweight 35.26 kg/meter(2) NE XTGEN (BMI) [Ratio] kg/meter(2) ([facility]) Body temperature 98.1 [degF] 98.1 [degF] NEXTGE N ([facility]) Heart rate 47 /min 47 /min NEXTGEN ([facility]) Diastolic blood 70 mm[Hg] 70 mm[Hg] NEXTGEN pressure ([facility]) Systolic blood 128 mm[Hg] 128 mm[Hg] NEXTGEN pressure ([facility]) Body weight 226.00 226.00 [lb_av] NEXTGEN Measured [lb_av] ([facility]) Body height 67.13 67.13 [in_us] NEXTGEN [in_us] ([facility]) Oxygen saturation 98 % 98 % [facility] in Arterial blood [employer] Body mass index 33.23 kg/m2 33.23 kg/m2 [facility] (BMI) [Ratio] [employer] Body weight 102.059 kg 102.059 kg [facility] [employer] Body height 175.3 cm 175.3 cm [facility] [employer] Body temperature 36.78 Anaid 36.78 Anaid [facility] [employer] Heart rate 60 /min 60 /min [facility] [employer] Diastolic blood 75 mm[Hg] 75 mm[Hg] [facility] pressure [employer] Systolic blood 143 mm[Hg] 143 mm[Hg] [place] pressure [employer] Body mass index 36.04 Overweight 36.04 kg/meter(2) NE XTGEN (BMI) [Ratio] kg/meter(2) ([facility]) Body temperature 97.2 [degF] 97.2 [degF] NEXTGE N ([facility]) Heart rate 95 /min 95 /min NEXTGEN ([facility]) Body weight 231.00 231.00 [lb_av] NEXTGEN Measured [lb_av] ([facility]) Body height 67.13 67.13 [in_us] NEXTGEN [in_us] ([facility]) Oxygen saturation 95 % 95 % [facility] in Arterial blood [employer] Respiratory rate 18 /min 18 /min [facility] [employer] Heart rate 66 /min 66 /min [facility] Diastolic blood 73 mm[Hg] 73 mm[Hg] [facility] pressure [employer] Systolic blood 130 mm[Hg] 130 mm[Hg] [place] [facility] pressure [employer] Body temperature 36.56 Anaid 36.56 Anaid [facility] [employer] Body mass index 33.97 kg/m2 33.97 kg/m2 [facility] (BMI) [Ratio] [facility] [employer] Body weight 104.327 kg 104.327 kg [facility] Body height 175.3 cm 175.3 cm [facility] Body surface area 2.25 2.25 meter(2) NEXT GEN Derived from meter(2) ([facility]) Body mass index 36.66 Overweight 36.66 kg/meter(2) NE XTGEN (BMI) [Ratio] kg/meter(2) ([facility]) Respiratory rate 16 /min 16 /min NEXTGEN ([facility]) Body temperature 99.0 [degF] 99.0 [degF] NEXTGE N ([facility]) Heart rate 83 /min 83 /min NEXTGEN ([facility]) Diastolic blood 70 mm[Hg] 70 mm[Hg] NEXTGEN pressure ([facility]) Systolic blood 130 mm[Hg] 130 mm[Hg] NEXTGEN pressure ([facility]) Body weight 235.00 235.00 [lb_av] NEXTGEN Measured [lb_av] ([facility]) Body height 67.13 67.13 [in_us] NEXTGEN [in_us] ([facility]) Body mass index 37.60 Overweight 37.60 kg/meter(2) NE XTGEN (BMI) [Ratio] kg/meter(2) ([facility]) Body temperature 98.4 [degF] 98.4 [degF] NEXTGE N ([facility]) Heart rate 50 /min 50 /min NEXTGEN ([facility]) Diastolic blood 84 mm[Hg] 84 mm[Hg] NEXTGEN pressure ([facility]) Systolic blood 114 mm[Hg] 114 mm[Hg] NEXTGEN pressure ([facility]) Body weight 241.00 241.00 [lb_av] NEXTGEN Measured [lb_av] ([facility]) Body height 67.13 67.13 [in_us] NEXTGEN [in_us] ([facility]) Body mass index 35.88 Overweight 35.88 kg/meter(2) NE XTGEN (BMI) [Ratio] kg/meter(2) ([facility]) Heart rate 67 /min 67 /min NEXTGEN ([facility]) Diastolic blood 84 mm[Hg] 84 mm[Hg] NEXTGEN pressure ([facility]) Systolic blood 122 mm[Hg] 122 mm[Hg] NEXTGEN pressure ([facility]) Body weight 230.00 230.00 [lb_av] NEXTGEN Measured [lb_av] ([facility]) Body height 67.13 67.13 [in_us] NEXTGEN [in_us] ([facility]) Body mass index 37.60 Overweight 37.60 kg/meter(2) NE XTGEN (BMI) [Ratio] kg/meter(2) ([facility]) Body temperature 97.7 [degF] 97.7 [degF] NEXTGE N ([facility]) Heart rate 66 /min 66 /min NEXTGEN ([facility]) Diastolic blood 78 mm[Hg] 78 mm[Hg] NEXTGEN pressure ([facility]) Systolic blood 128 mm[Hg] 128 mm[Hg] NEXTGEN pressure ([facility]) Body weight 241.00 241.00 [lb_av] NEXTGEN Measured [lb_av] ([facility]) Body height 67.13 67.13 [in_us] NEXTGEN [in_us] ([facility]) Body mass index 36.98 Overweight 36.98 kg/meter(2) NE XTGEN (BMI) [Ratio] kg/meter(2) ([facility]) Respiratory rate 16 /min 16 /min NEXTGEN ([facility]) Body temperature 98.7 [degF] 98.7 [degF] NEXTGE N ([facility]) Heart rate 62 /min 62 /min NEXTGEN ([facility]) Diastolic blood 80 mm[Hg] 80 mm[Hg] NEXTGEN pressure ([facility]) Systolic blood 120 mm[Hg] 120 mm[Hg] NEXTGEN pressure ([facility]) Body weight 237.00 237.00 [lb_av] NEXTGEN Measured [lb_av] ([facility]) Body height 67.13 67.13 [in_us] NEXTGEN [in_us] ([facility]) Patient Treatment Plan of Care Planned Activity Planned Date Details Description Data Source (s) Acetaminophen 325 MG / 05/21/2020 12:00:00 NEXTGEN ([place] Oxycodone Hydrochloride 5 AM EDT Wa dical) MG Oral Tablet [Percocet] Metoprolol Tartrate 25 MG 04/30/2020 12:00:00 NEXTGEN ([place] Oral Tablet AM EDT Medical) Lisinopril 10 MG Oral 04/30/2020 12:00:00 NEXTGEN ([place] Tablet AM EDT Medical) Famotidine 20 MG Oral 04/11/2020 12:00:00 NEXTGEN ([place] Tablet AM EDT Medical) Acetaminophen 325 MG / 03/27/2020 12:00:00 NEXTGEN ([place] Oxycodone Hydrochloride 5 AM EDT Me dical) MG Oral Tablet [Percocet] Acetaminophen 325 MG / 02/01/2020 12:00:00 NEXTGEN ([place] Oxycodone Hydrochloride 5 AM EDT Me dical) MG Oral Tablet [Percocet] Acetaminophen 325 MG / 12/07/2019 12:00:00 NEXTGEN ([place] Oxycodone Hydrochloride 5 AM EDT Me dical) MG Oral Tablet [Percocet] Lisinopril 10 MG Oral 11/05/2019 12:00:00 NEXTGEN ([place] Tablet AM EST Medical) Metoprolol Tartrate 25 MG 11/05/2019 12:00:00 NEXTGEN ([place] Oral Tablet AM EST Medical) Acetaminophen 325 MG / 10/09/2019 12:00:00 NEXTGEN ([place] Oxycodone Hydrochloride 5 AM EST Me dical) MG Oral Tablet [Percocet] Rosuvastatin calcium 5 MG 09/24/2019 12:00:00 NEXTGEN ([place] Oral Tablet AM EST Medical) Acetaminophen 325 MG / 08/15/2019 12:00:00 NEXTGEN ([place] Oxycodone Hydrochloride 5 AM EST Me dical) MG Oral Tablet [Percocet] Lisinopril 10 MG Oral 08/13/2019 12:00:00 NEXTGEN ([place] Tablet AM EST Medical) Acetaminophen 325 MG / 07/27/2019 12:00:00 NEXTGEN ([place] Oxycodone Hydrochloride 5 AM EDT Me dical) MG Oral Tablet [Percocet] Amoxicillin 875 MG / 07/21/2019 12:00:00 Marvin Keene Clavulanate 125 MG Oral AM EDT [facility] Tablet Amoxicillin 875 MG / 07/21/2019 12:00:00 NEXTGEN ([place] Clavulanate 125 MG Oral AM EDT Medi venessa) Tablet [Augmentin] Azithromycin 250 MG Oral 07/21/2019 12:00:00 NEXTGEN ([place] Tablet [Zithromax] AM EDT Medical) Famotidine 20 MG Oral 07/12/2019 12:00:00 NEXTGEN ([place] Tablet EDT Medical) Famotidine 20 MG Oral 07/10/2019 12:00:00 NEXTGEN ([place] Tablet EDT Medical) Famotidine 20 MG Oral 07/10/2019 12:00:00 NEXTGEN ([place] Tablet EDT Medical) Famotidine 26.6 MG / 07/06/2019 12:00:00 NEXTGEN ([place] Ibuprofen 800 MG Oral AM EDT Medica l) Tablet [Duexis] Famotidine 20 MG Oral 07/04/2019 12:00:00 [facility] Tablet [facility] Famotidine 26.6 MG / 06/30/2019 12:00:00 [facility] Ibuprofen 800 MG Oral [facility] Tablet [Duexis] Famotidine 20 MG Oral 06/22/2019 12:00:00 NEXTGEN ([place] Tablet EDT Medical) Famotidine 20 MG Oral 06/22/2019 12:00:00 NEXTGEN ([place] Tablet EDT Medical) Diazepam 5 MG Oral Tablet 06/12/2019 12:00:00 [facility] AM EDT [facility] Diazepam 5 MG Oral Tablet 06/12/2019 12:00:00 NEXTGEN ([place] [Valium] EDT Medical) Acetaminophen 325 MG / 05/22/2019 12:00:00 NEXTGEN ([place] Oxycodone Hydrochloride 5 AM EDT Me dical) MG Oral Tablet [Percocet] Rosuvastatin calcium 5 MG 05/19/2019 12:00:00 NEXTGEN ([place] Oral Tablet AM EDT Medical) Metoprolol Tartrate 25 MG 05/17/2019 12:00:00 NEXTGEN ([place] Oral Tablet AM EDT Medical) Lisinopril 10 MG Oral 05/17/2019 12:00:00 NEXTGEN ([place] Tablet EDT Medical) Acetaminophen 325 MG / 03/28/2019 12:00:00 NEXTGEN ([place] Oxycodone Hydrochloride 5 AM EDT Me dical) MG Oral Tablet [Percocet] Diazepam 5 MG Oral Tablet 10/05/2018 12:00:00 NEXTGEN ([facility] Medical) 60 ACTUAT Fluticasone 06/27/2018 12:00:00 NEXTGEN ([place] propionate 0.1 MG/ACTUAT AM EDT Med ical) / salmeterol 0.05 MG/ACTUAT Dry Powder Inhaler [Advair] 200 ACTUAT Albuterol 0.09 06/27/2018 12:00:00 NEXTGEN ([place] MG/ACTUAT Metered Dose AM EDT Medic al) Inhaler [ProAir] Shingrix (PF) 50 mcg/0.5 06/20/2018 12:00:00 NEXTGEN ([place] mL intramuscular AM EDT Medical) suspension, kit Ranitidine 150 MG Oral 06/18/2017 12:00:00 NEXTGEN ([place] Capsule AM EDT Medical) pantoprazole 40 mg 06/04/2015 12:00:00 JOSHUA XT ([place] tablet,delayed release AM EDT Medic al) Ranitidine 150 MG Oral Marvin [facility]
[2020-07-08 10:20] VITALS: TEMP 97.8
[2020-07-08 10:56] VITALS: BP 148/75; PULSE 66
--- NOTE | 2020-07-09 17:31 | PATH ---
Surgical Pathology Report Patient Name: MINESH SNEED [facility]. Rec. #: [id number] /Age/Gender: 1955 (Age: 65) / M Account: [id number] Location: [facility]-ENDOSCOPY Taken: 07/08/2020 Received: 07/08/2020 Reported: 07/09/2020 Physicians: Anuj Vital M.D. Specimen(s) Received A: ANTRUM B: POLYPS AT CARDIA C: ESOPHAGUS SCHATZKI'S RING D: MID ESOPHAGUS Clinical History Dysphagia Postoperative diagnosis: Gastric polyps, Schatzki's ring, hiatal hernia, GERD Final Diagnosis A. ANTRUM, BIOPSY: GASTRIC MUCOSA WITH CHRONIC GASTRITIS. IMMUNOSTAINS FOR H. PYLORI IS NEGATIVE. NEGATIVE FOR INTESTINAL METAPLASIA. B. POLYPS AT CARDIA, BIOPSY: FRAGMENTS OF FUNDIC GLAND POLYP. IMMUNOSTAIN FOR H. PYLORI IS NEGATIVE. C. ESOPHAGUS, SCHATZKI'S RING, BIOPSY: SQUAMOUS MUCOSA WITH MILD REFLUX ESOPHAGITIS. NO COLUMNAR EPITHELIUM PRESENT; NEGATIVE FOR INTESTINAL METAPLASIA. D. MID ESOPHAGUS, BIOPSY: SQUAMOUS MUCOSA WITH NO SIGNIFICANT PATHOLOGIC CHANGE. NO HISTOLOGIC EVIDENCE OF EOSINOPHILIC ESOPHAGITIS. Electronically Signed Alba Cook M.D. Gross Description A. Received in formalin, labeled "biopsy antrum" are 2 yee, irregular portions of soft tissue measuring 0.2 and 0.4 cm. in greatest dimension. The specimens are submitted in toto in one cassette. B. Received in formalin, labeled "biopsy polyps at cardia" are 3 yee, irregular portions of soft tissue ranging from 0.3-0.4 cm. in greatest dimension. The specimens are submitted in toto in one cassette. C. Received in formalin, labeled "biopsy distal esophagus Schatzki's ring" are 4 yee, irregular portions of soft tissue ranging from 0.4-0.6 cm. in greatest dimension. The specimens are submitted in toto in one cassette. D. Received in formalin, labeled "biopsy midesophagus" are 2 yee, irregular portions of soft tissue measuring 0.2 and 0.3 cm. in greatest dimension. The specimens are submitted in toto in one cassette. DL/07/08/2020 saudi/07/08/2020
== END 2020-07-08 11:05 | disposition home or self-care (01) ==
LOC: JASU-ENDO 05:11
PROVIDERS: ATTEND Internal Medicine Gastroenterology
PROC: 0DB38ZX Excision of Lower Esophagus, Via Natural or Artificial Opening Endoscopic, Diagnostic (ICD-10-PCS; 2020-07-08)
PROC: 0DB68ZX Excision of Stomach, Via Natural or Artificial Opening Endoscopic, Diagnostic (ICD-10-PCS; 2020-07-08)
PROC: 0DB28ZX Excision of Middle Esophagus, Via Natural or Artificial Opening Endoscopic, Diagnostic (ICD-10-PCS; 2020-07-08)
PROC: 0D738ZZ Dilation of Lower Esophagus, Via Natural or Artificial Opening Endoscopic (ICD-10-PCS; principal; 2020-07-08 09:00)
DX: K21.9 Gastro-esophageal reflux disease without esophagitis (principal); K44.9 Diaphragmatic hernia without obstruction or gangrene; K22.2 Esophageal obstruction; K31.7 Polyp of stomach and duodenum; K29.50 Unspecified chronic gastritis without bleeding
CPT/HCPCS: 88305-TC; 88342-TC

== ENCOUNTER 2021-09-10 05:18 | Day surgery (SDC) | payer BC ==
[2021-09-10 08:20] VITALS: BMI 31.3
[2021-09-10 09:33] VITALS: TEMP 97.7
[2021-09-10 10:14] VITALS: BP 111/69; PULSE 64
== END 2021-09-10 10:30 | disposition home or self-care (01) ==
LOC: JASU-ENDO 05:18
PROVIDERS: ATTEND Internal Medicine Gastroenterology
PROC: 0DBN8ZX Excision of Sigmoid Colon, Via Natural or Artificial Opening Endoscopic, Diagnostic (ICD-10-PCS; principal; 2021-09-10 09:00)
DX: Z51.11 Encounter for antineoplastic chemotherapy (principal); Z86.010 Personal history of colon polyps; Z76.89 Persons encountering health services in other specified circumstances; D12.5 Benign neoplasm of sigmoid colon; K64.8 Other hemorrhoids; K57.30 Diverticulosis of large intestine without perforation or abscess without bleeding